=== PATIENT | female | born 1940 | race Caucasian/White ===

== ENCOUNTER 2019-10-21 09:39 | Outpatient (CLI) | payer MEDICARE, OTHER, SELFPAY ==
--- NOTE | ~2019-10-21 | US_ITS ---
EXAMINATION: US venous doppler LE EXAM DATE: 10/21/2019 10:51 INDICATION: DVT follow-up. TECHNIQUE: Multiple grayscale, color flow and Doppler images of the lower extremity deep venous syste ms bilaterally were obtained and reviewed. Comparison is made to prior examination from 07/17/2019. FINDINGS: RIGHT SIDE Common femoral: -------- Normal. Profunda femoral: ------- Normal. Femoral: Normal. Popliteal: Normal. Interval reconstitution. Posterior tibial: --------- Normal. Peroneal: Normal. Gastrocnemius: Not visualized. Soleus: Not visualized. Greater saphenous: ----- Normal. Lesser saphenous: ------ Not visualized. LEFT SIDE Common femoral: -------- Normal. Profunda femoral: ------- Normal. Femoral: Normal. Popliteal: Normal. Posterior tibial: --------- Normal. Peroneal: Normal. Gastrocnemius: Not visualized. Soleus: Not visualized. Greater saphenous: ----- Normal. Lesser saphenous: ------ Not visualized. IMPRESSION: 1. Resolution of previously seen lower extremity thrombus. Reviewed, dictated and finalized at location B.
== END 2019-10-21 09:40 | disposition home or self-care (01) ==
PROVIDERS: PCP Family Medicine; Visit Provider Internal Medicine Hematology & Oncology
DX: I82.4Y3 Acute embolism and thrombosis of unspecified deep veins of proximal lower extremity, bilateral (principal)
CPT/HCPCS: 93970

== ENCOUNTER 2019-12-03 10:41 | Outpatient (CLI) | payer MEDICARE, OTHER, SELFPAY ==
--- NOTE | ~2019-12-03 | MM_ITS ---
EXAMINATION: MM screening sylvain LT w valeriy HISTORY: Screening mammogram TECHNIQUE: Craniocaudal and mediolateral oblique 3-D tomosynthesis images were obtained and synthetic 2-D images were generated. CAD analysis was submitted and interpreted. COMPARISON: 12/01/2018 left digital screening mammogram, 11/25/2017, 10/30/2014 bilateral digital screening mammogram examinations BREAST PARENCHYMAL COMPOSITION: There are scattered areas of fibroglandular density. 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 There is no evidence of suspicious mass, calcification, or architectural distortion to suggest malign augustus of the left breast. There has been no suspicious interval change. IMPRESSION: 1. No mammographic evidence of malignancy of left breast; status post right mastectomy for breast can cer. 2. Recommend routine screening mammography in one year. BI-RADS Category 1: Negative Reviewed, dictated and finalized at location A. IMPRESSION: 1. No mammographic evidence of malignancy of left breast; status post right mas tectomy for breast cancer. 2. Recommend routine screening mammography in one year. BI-RADS Category 1: Negative
== END 2019-12-03 10:42 | disposition home or self-care (01) ==
PROVIDERS: PCP Family Medicine; Visit Provider Internal Medicine Hematology & Oncology
DX: Z12.31 Encounter for screening mammogram for malignant neoplasm of breast (principal)
CPT/HCPCS: 36415; 77063; 77067; 80053; 85025; 86300

== ENCOUNTER 2019-12-03 11:28 | Outpatient (CLI) | payer MEDICARE, OTHER, SELFPAY ==
[2019-12-03 11:54] LABS: Basophils Absolute Auto 0.1 K/mm3 (0.0-0.1); Basophils Percent Auto 0.7 % (0.2-1.2); Eosinophils Percent Auto 0.4 % (0-4.4); Hematocrit 41.1 % (37.0-47.0); Hemoglobin 13.2 g/dL (12.0-15.0); Immature Granulocyte Absolute 0.04 K/mm3 (0.00-0.031); Immature Granulocyte Percent A 0.4 % (0-0.5); Lymphocytes Absolute Auto 2.31 K/mm3 (0.9-3.2); Lymphocytes Percent Auto 23.4 % (18.3-44.2); Mean Corpuscular HGB Conc 32.1 g/dl (32-36); Mean Corpuscular Hemoglobin 30.3 pg (26-34); Mean Corpuscular Volume 94.5 fl (80-100); Mean Platelet Volume 11.2 fl (7.4-10.4); Monocytes Absolute Auto 1.2 K/mm3 (0.1-0.6); Monocytes Percent Auto 11.8 % (2.6-8.5); Neutrophils Absolute Auto 6.3 K/mm3 (1.3-6.7); Neutrophils Percent Auto 63.3 % (45.5-73.1); Platelet Count Result 239 k/mm3 (150-375); Red Blood Count 4.35 M/mm3 (4.2-5.4); Red Cell Distribution Width 13.6 % (11.5-14.5); White Blood Count 9.9 K/mm3 (4.5-10.0)
[2019-12-03 13:09] LABS: Alanine Aminotransferase 14 U/L (4-35); Albumin Level 4.3 g/dL (3.5-5.1); Alkaline Phosphatase 92 U/L (38-126); Aspartate Amino Transferase 20 U/L (14-36); Bilirubin,Total 0.9 mg/dL (0.2-1.3); Blood Urea Nitrogen 15 mg/dL (7-17); Calcium 9.4 mg/dL (8.4-10.2); Carbon Dioxide 32 mmol/L (22-30); Chloride 101 mmol/L (98-107); Estimated Glomerular Filt Rate > 60; Glucose 101 mg/dL (65-105); Potassium 3.8 mmol/L (3.4-5.0); Sodium 139 mmol/L (137-145)
[2019-12-06 03:45] LABS: CA 27.29 32 U/mL (<38)
== END 2019-12-03 11:29 | disposition home or self-care (01) ==
PROVIDERS: PCP Family Medicine; Visit Provider Internal Medicine Hematology & Oncology
DX: C50.411 Malignant neoplasm of upper-outer quadrant of right female breast (principal)
CPT/HCPCS: 36415; 80053; 85025; 86300

== ENCOUNTER 2019-12-14 08:24 | Outpatient (CLI) | payer MEDICARE, OTHER, SELFPAY ==
--- NOTE | 2019-12-14 | ECHO_ITS ---
Patient Info Name: Jhoana Sharma Age: 79 years : 1940 Gender: Female Ht: 70 in Wt: 248 lbs BSA: 2.40 m2 HR: 70 bpm BP: 179 / 83 mmHg Heart Rhythm: Sinus Rhythm Technical Quality: Good Exam Date: 12/14/2019 8:48 AM Exam Location: [facility] Patient Status: Outpatient Admit Date: 12/14/2019 Staff Ordering Physician: Jc Londono MD Wire Technician: Juice Jimenez NANCY Attending Provider: Jc Londono MD Referring Physician: Bry CERON; Exam Type: CA echo doppler color flow Study Info Indications R60.0 - Localized edema Complete two-dimensional, color flow and Doppler transthoracic echocardiogram is performed. Strain analysis performed. History/Risk Factors Lower extremity edema. Summary 1. Left ventricular chamber dimension is normal. 2. Left ventricular systolic function is normal, estimated at 65-70%. 3. The left ventricular diastolic function is normal. 4. No significant valvular disease. 5. No apparent cardiac reason for the patient's edema. Left Ventricle Left ventricular chamber dimension is normal. Left ventricular systolic function is normal, estimated at 65-70%. The left ventricular diastolic function is normal. Right Ventricle Right ventricular chamber dimension is normal. Left Atria Left atrial chamber dimension is normal. Right Atria Right atrial chamber dimension is normal. Aortic Valve The aortic valve is normal. There is mild aortic valve sclerosis. Pulmonic Valve The pulmonic valve is not well visualized. Mitral Valve The mitral valve has normal leaflets. Tricuspid Valve The tricuspid valve leaflets are normal. Pericardium/Pleural The pericardium appears normal. Aorta The aortic root size at the sinus of Valsalva is normal. Left Ventricular Outflow Tract Name Value Normal LVOT 2D LVOT Diameter 2.0 cm LVOT Doppler LVOT Peak Gradient 4 mmHg LVOT Mean Gradient 2 mmHg LVOT VTI 24 cm LVOT VTI/AV VTI Ratio 0.8 LVOT Stroke Volume 75 ml LVOT CO 4.6 l/min LVOT CI 1.9 l/min/m2 Mitral Valve Name Value Normal MV Doppler MV Decel Grant 317 cm/s2 MV PHT 89 ms MV Area (PHT) 2.5 cm2 4.0-5.0 MV Diastolic Function MV E Peak Velocity 98 cm/s MV A Peak Velocity 76 cm/s MV E/A 1.3 MV Decel Time 308 ms MV Annular TDI
== END 2019-12-14 08:25 | disposition home or self-care (01) ==
LOC: ANHCARD 08:28
PROVIDERS: PCP Family Medicine; Visit Provider Internal Medicine Hematology & Oncology
DX: M79.89 Other specified soft tissue disorders (principal); R60.0 Localized edema
CPT/HCPCS: 93306

== ENCOUNTER 2020-03-02 14:09 | Outpatient (CLI) | payer MEDICARE, OTHER, SELFPAY ==
[2020-03-02 14:28] LABS: Basophils Absolute Auto 0.1 K/mm3 (0.0-0.1); Basophils Percent Auto 0.5 % (0.2-1.2); Eosinophils Absolute Auto 0.1 K/mm3 (0-0.3); Eosinophils Percent Auto 0.9 % (0-4.4); Hemoglobin 13.4 g/dL (12.0-15.0); Immature Granulocyte Absolute 0.04 K/mm3 (0.00-0.031); Immature Granulocyte Percent A 0.4 % (0-0.5); Lymphocytes Percent Auto 31.4 % (18.3-44.2); Mean Corpuscular HGB Conc 31.9 g/dl (32-36); Mean Corpuscular Hemoglobin 29.5 pg (26-34); Mean Corpuscular Volume 92.3 fl (80-100); Mean Platelet Volume 10.9 fl (7.4-10.4); Monocytes Absolute Auto 0.9 K/mm3 (0.1-0.6); Monocytes Percent Auto 9.7 % (2.6-8.5); Neutrophils Absolute Auto 5.4 K/mm3 (1.3-6.7); Neutrophils Percent Auto 57.1 % (45.5-73.1); Platelet Count Result 287 k/mm3 (150-375); Red Blood Count 4.55 M/mm3 (4.2-5.4); Red Cell Distribution Width 14.1 % (11.5-14.5); White Blood Count 9.6 K/mm3 (4.5-10.0)
[2020-03-02 15:08] LABS: Alanine Aminotransferase 17 U/L (4-35); Albumin Level 4.2 g/dL (3.5-5.1); Alkaline Phosphatase 94 U/L (38-126); Anion Gap 10 mmol/L (8-16); Aspartate Amino Transferase 18 U/L (14-36); Bilirubin,Total 0.7 mg/dL (0.2-1.3); Blood Urea Nitrogen 17 mg/dL (7-17); Calcium 9.4 mg/dL (8.4-10.2); Carbon Dioxide 28 mmol/L (22-30); Chloride 100 mmol/L (98-107); Estimated Glomerular Filt Rate > 60; Glucose 142 mg/dL (65-105); Potassium 4.1 mmol/L (3.4-5.0); Sodium 138 mmol/L (137-145)
[2020-03-04 14:40] LABS: CA 27.29 32 U/mL (<38)
== END 2020-03-02 14:10 | disposition home or self-care (01) ==
LOC: ANHLAB 14:12
PROVIDERS: PCP Family Medicine; Visit Provider Internal Medicine Hematology & Oncology
DX: C50.411 Malignant neoplasm of upper-outer quadrant of right female breast (principal); Z17.0 Estrogen receptor positive status [ER+]
CPT/HCPCS: 36415; 80053; 85025; 86300

== ENCOUNTER 2020-05-27 14:22 | Outpatient (CLI) | payer MEDICARE, OTHER, SELFPAY ==
[2020-05-27 14:37] LABS: Hematocrit 42.4 % (37.0-47.0); Hemoglobin 13.4 g/dL (12.0-15.0); Mean Corpuscular HGB Conc 31.6 g/dl (32-36); Mean Corpuscular Hemoglobin 29.3 pg (26-34); Mean Corpuscular Volume 92.6 fl (80-100); Mean Platelet Volume 10.9 fl (7.4-10.4); Platelet Count Result 274 k/mm3 (150-375); Red Blood Count 4.58 M/mm3 (4.2-5.4); Red Cell Distribution Width 14.4 % (11.5-14.5); White Blood Count 8.7 K/mm3 (4.5-10.0)
[2020-05-27 16:34] LABS: Alanine Aminotransferase 16 U/L (4-35); Albumin Level 4.1 g/dL (3.5-5.1); Alkaline Phosphatase 95 U/L (38-126); Anion Gap 8 mmol/L (8-16); Aspartate Amino Transferase 21 U/L (14-36); Bilirubin,Total 0.8 mg/dL (0.2-1.3); Blood Urea Nitrogen 17 mg/dL (7-17); Calcium 9.7 mg/dL (8.4-10.2); Carbon Dioxide 33 mmol/L (22-30); Chloride 99 mmol/L (98-107); Estimated Glomerular Filt Rate > 60; Glucose 108 mg/dL (65-105); Potassium 4.1 mmol/L (3.4-5.0); Sodium 140 mmol/L (137-145)
[2020-06-01 13:08] LABS: CA 15-3 25 U/mL (<32)
== END 2020-05-27 14:23 | disposition home or self-care (01) ==
LOC: ANHLAB 14:24
PROVIDERS: PCP Family Medicine; Visit Provider Internal Medicine Hematology & Oncology
DX: C50.411 Malignant neoplasm of upper-outer quadrant of right female breast (principal); Z17.0 Estrogen receptor positive status [ER+]
CPT/HCPCS: 36415; 80053; 85027; 86300

== ENCOUNTER 2020-06-10 10:13 | Emergency (ER) | payer MEDICARE, OTHER, SELFPAY ==
[2020-06-10 10:25] VITALS: BP 174/70; PULSE 70; RESP 16; TEMP 36.8; O2SAT 98
--- NOTE | 2020-06-10 11:03 | ED.GENADULT ---
HPI - General Adult General Chief complaint: Unspecified Stated complaint: not feeling well Time Seen by Provider: 06/10/20 11:04 Source: patient, family and RN notes reviewed Mode of arrival: ambulatory Limitations: no limitations History of Present Illness HPI narrative: 79-year-old female who presents to [facility] care with complaints not feeling well. Patient states that she went to her doctor on Saturday and was diagnosed with continued urinary tract infection and was prescribed Bactrim DS of which she took one dose but quit stating that it made her nauseated. Patient states that she did have a 101F fever yesterday but presents with no fever today. Patient states that she continues to have some burning with urination but denies any supra pubic or any CVA tenderness. Patient states that she has some generalized discomfort and just doesn't feel well. MD complaint: urinary tract infection Onset (ago): day(s) (5) Radiation: other (states generalized discomfort) Severity: mild Severity scale (1-10): 4 Quality: burning Pain Consistency: intermittent Relieving factors: none Associated symptoms: fever/chills (yesterday) and other (burning with urination) Treatments prior to arrival: other (only took one dose of Bactrim) Related Data Home Medications Medication Instructions Recorded Confirmed calcium carbonate-vitamin D3 1 tablet PO DAILY 05/05/19 06/10/20 [Calcium 500 + D] venlafaxine 75 mg tablet 75 mg PO DAILY 03/24/20 06/10/20 levothyroxine 06/10/20 nitrofurantoin monohyd/m-cryst 06/11/20 ondansetron HCl 06/11/20 Allergies Allergy/AdvReac Type Severity Reaction Status Date / Time atorvastatin Allergy Unknown unknown Verified 06/11/20 01:35 celecoxib Allergy Unknown Unknown Verified 06/11/20 01:35 cephalexin Allergy Unknown Unknown Verified 06/11/20 01:35 codeine Allergy Unknown Unknown Verified 06/11/20 01:35 diclofenac Allergy Unknown Unknown Verified 06/11/20 01:35 ezetimibe Allergy Unknown Unknown Verified 06/11/20 01:35 gabapentin Allergy Unknown Unknown Verified 06/11/20 01:35 hydrocodone Allergy Unknown Unknown Verified 06/11/20 01:35 lovastatin Allergy Unknown Unknown Verified 06/11/20 01:35 ondansetron Allergy Unknown Unknown Verified 11/28/20 01:35 Penicillins Allergy Unknown Unknown Verified 06/11/20 01:35 piroxicam Allergy Unknown WEAK, BLACKMAN Verified 06/11/20 01:35 prednisone Allergy Unknown Unknown Verified 06/11/20 01:35 pregabalin Allergy Unknown Unknown Verified 06/11/20 01:35 ranitidine Allergy Unknown Unknown Verified 06/11/20 01:35 simvastatin Allergy Unknown Unknown Verified 06/11/20 01:35 duloxetine AdvReac Unknown DOESN'T Verified 06/11/20 01:35 FEEL RIGHT duloxetine Allergy Unknown DOESN'T Uncoded 06/08/20 09:02 FEEL RIGHT Penicillins Allergy Unknown Increased Uncoded 06/08/20 09:02 Heart Rate CEPHALEXIN MONOHYDRATE AdvReac Unknown WEAK, BLACKMAN Uncoded 06/08/20 09:02 Review of Systems Review of Systems: Narrative: CONSTITUTIONAL: reports fever, chills, or sweats. EYES: Denies visual changes, redness, or discharge. ENT: Denies rhinorrhea, congestion, sore throat, or otalgia. CARDIOVASCULAR: Denies chest pain, palpitations, or edema. RESPIRATORY: Denies cough or dyspnea. GASTROINTESTINAL: Denies abdominal pain,reported nausea with medication,no vomiting, or diarrhea. GENITOURINARY: Positive dysuria or hematuria. SKIN: Denies rash or itching. MUSCULOSKELETAL: Denies back pain, joint pain, or myalgia. NEUROLOGIC: Denies headache, numbness, or weakness. PSYCHIATRIC:Positive history of anxiety or depression. All systems reviewed & are unremarkable except as noted in HPI and below PMFSH Past Medical History Medical History (Updated 06/12/20 @ 11:15 by Kami Peters NP) Breast cancer, right Frequent UTI Small bowel obstruction Spinal stenosis of lumbar region Thrombophlebitis leg superficial Surgical History Surgical History
== END 2020-06-10 11:43 | disposition home or self-care (01) ==
PROVIDERS: Emergency Provider Registered Nurse; PCP Family Medicine
DX: N39.0 Urinary tract infection, site not specified (principal); M48.061 Spinal stenosis, lumbar region without neurogenic claudication; Z86.72 Personal history of thrombophlebitis; Z85.3 Personal history of malignant neoplasm of breast; Z90.11 Acquired absence of right breast and nipple; Z96.653 Presence of artificial knee joint, bilateral; E89.0 Postprocedural hypothyroidism
CPT/HCPCS: 81003; 87086; 99213; G0463

== ENCOUNTER 2020-06-11 01:22 | Emergency (ER) | payer MEDICARE, OTHER, SELFPAY ==
--- NOTE | ~2020-06-11 | XR_ITS ---
XR chest 1V portable DATE: 06/11/2020 02:37 INDICATION: Cough, dizziness, headache TECHNIQUE: Portable AP chest on 06/03/2020 at 0237 hours COMPARISON: 03/21/2018 portable AP chest FINDINGS: Left Port-A-Cath catheter is been removed since 03/21/2018. Cardiomegaly. There is mild pulmonary vascular congestion. No pulmonary consolidation, pleural effusion or pneumothorax. Surgical clips overlie the right axillary area consistent with right axillary node dissection. The ri ght breast shadow is absent or diminished compared to into the left. Degenerative spurring of the thoracic spine. IMPRESSION: Cardiomegaly and mild pulmonary vascular congestion Reviewed, dictated and finalized at location A. UM TOUR GUIDE
[2020-06-11 01:28] VITALS: BP 164/64; PULSE 84; RESP 18; TEMP 37.3; O2SAT 95
[2020-06-11 02:00] VITALS: TEMP 38.1
--- NOTE | 2020-06-11 02:13 | ECG_ITS ---
Measurements Intervals [place] Rate: 86 P: 52 TX: 156 QRS: -11 QRSD: 81 T: 26 QT: 349 QTc: 418 Interpretive Statements SINUS RHYTHM ATRIAL PREMATURE COMPLEXES DELAYED PRECORDIAL R/S TRANSITION BASELINE ARTIFACT- I, II, III, AVR, AVL, V5 BORDERLINE ECG Electronically Signed On 06-11-2020 7:51:32 PROGRAM PARAPROFESSIONAL by Jony Love D.O.
[2020-06-11] MEDS: PROCHLORPERAZINE EDISYLATE 10 MG/2 ML VIAL IV PUSH (02:48)
[2020-06-11] MEDS: SODIUM CHLORIDE 0.9% IV 1,000 ML 999 ML IV CONT (02:49)
[2020-06-11 02:55] LABS: Basophils Percent Auto 0.4 % (0.2-1.2); Eosinophils Percent Auto 0.4 % (0-4.4); Hemoglobin 12.7 g/dL (12.0-15.0); Immature Granulocyte Absolute 0.05 K/mm3 (0.00-0.031); Immature Granulocyte Percent A 0.4 % (0-0.5); Mean Corpuscular HGB Conc 33.4 g/dl (32-36); Mean Corpuscular Hemoglobin 30.4 pg (26-34); Mean Corpuscular Volume 90.9 fl (80-100); Mean Platelet Volume 11.4 fl (7.4-10.4); Monocytes Absolute Auto 1.2 K/mm3 (0.1-0.6); Monocytes Percent Auto 10.4 % (2.6-8.5); Neutrophils Absolute Auto 9.3 K/mm3 (1.3-6.7); Neutrophils Percent Auto 81.4 % (45.5-73.1); Platelet Count Result 197 k/mm3 (150-375); Red Blood Count 4.18 M/mm3 (4.2-5.4); Red Cell Distribution Width 14.6 % (11.5-14.5); White Blood Count 11.4 K/mm3 (4.5-10.0)
[2020-06-11 03:02] LABS: Add Urine Microscopic? YES; Appearance Urine Clear (Clear); Bacteria Urine Trace /hpf; Bilirubin Urine Negative (Negative); Blood Urine Negative (Negative); Color Urine Yellow (Yellow); Glucose Urine UA Negative (Negative); Ketones Urine Trace mg/dL (Negative); Leukocyte Esterase Ur 3+ LEU/UL (Negative); Mucus Urine Rare /lpf; Nitrate Urine Negative (Negative); Protein Urine 1+ mg/dL (Negative); Specific Grav Ur 1.017 (1.001-1.035); Squamous Epithelial Cell Urine Moderate /hpf (Few); Urobilinogen Urine Negative mg/dL (<2.0); WBC Urine 31-50 /hpf
[2020-06-11 03:06] LABS: INR 1.3; Prothrombin Time 16.6 Seconds (11.1-14.7)
[2020-06-11 03:07] LABS: Lactic Acid Reflex 1.3 mmol/L (0.7-2.1); Partial Thromboplastin Time 31.7 SECONDS (22.3-36.8)
[2020-06-11 03:10] LABS: Alanine Aminotransferase 33 U/L (4-35); Albumin Level 3.8 g/dL (3.5-5.1); Alkaline Phosphatase 93 U/L (38-126); Anion Gap 7 mmol/L (8-16); Aspartate Amino Transferase 37 U/L (14-36); Blood Urea Nitrogen 14 mg/dL (7-17); Carbon Dioxide 31 mmol/L (22-30); Chloride 97 mmol/L (98-107); Estimated CRCL calculation 63 ml/min; Estimated Glomerular Filt Rate > 60; Glucose 136 mg/dL (65-105); Lipase 43 U/L (23-300); Potassium 3.8 mmol/L (3.4-5.0); Sodium 135 mmol/L (137-145)
[2020-06-11 03:19] VITALS: TEMP 37.9
[2020-06-11 03:55] VITALS: BP 142/58; PULSE 77; RESP 19; TEMP 37.9; O2SAT 93
--- NOTE | 2020-06-11 04:22 | ED.FEVER ---
HPI - Fever General Chief Complaint: Fever Stated Complaint: chills Time Seen by Provider: 06/11/20 02:04 History of Present Illness HPI Narrative: Patient is a 79-year-old female who presents to emergency department with chief complaint of fever. The patient was recently seen at urgent care and was having some nausea and was found to have a UTI. The patient was started on Bactrim patient states that she has become so nauseated that she is unable to take the Bactrim and has still been running a fever patient reports symptoms are not improved by anything nor they worsened by anything. Related Data Home Medications Medication Instructions Recorded Confirmed calcium carbonate-vitamin D3 1 tablet PO DAILY 05/05/19 06/10/20 [Calcium 500 + D] venlafaxine 75 mg tablet 75 mg PO DAILY 03/24/20 06/10/20 levothyroxine 06/10/20 nitrofurantoin monohyd/m-cryst 06/11/20 ondansetron HCl 06/11/20 Allergies Allergy/AdvReac Type Severity Reaction Status Date / Time atorvastatin Allergy Unknown unknown Verified 06/11/20 01:35 celecoxib Allergy Unknown Unknown Verified 06/11/20 01:35 cephalexin Allergy Unknown Unknown Verified 06/11/20 01:35 codeine Allergy Unknown Unknown Verified 06/11/20 01:35 diclofenac Allergy Unknown Unknown Verified 06/11/20 01:35 ezetimibe Allergy Unknown Unknown Verified 06/11/20 01:35 gabapentin Allergy Unknown Unknown Verified 06/11/20 01:35 hydrocodone Allergy Unknown Unknown Verified 06/11/20 01:35 lovastatin Allergy Unknown Unknown Verified 06/11/20 01:35 ondansetron Allergy Unknown Unknown Verified 06/11/20 01:35 Penicillins Allergy Unknown Unknown Verified 06/11/20 01:35 piroxicam Allergy Unknown WEAK, BLACKMAN Verified 06/11/20 01:35 prednisone Allergy Unknown Unknown Verified 06/11/20 01:35 pregabalin Allergy Unknown Unknown Verified 06/11/20 01:35 ranitidine Allergy Unknown Unknown Verified 06/11/20 01:35 simvastatin Allergy Unknown Unknown Verified 06/11/20 01:35 duloxetine AdvReac Unknown DOESN'T Verified 06/11/20 01:35 FEEL RIGHT duloxetine Allergy Unknown DOESN'T Uncoded 06/08/20 09:02 FEEL RIGHT Penicillins Allergy Unknown Increased Uncoded 06/08/20 09:02 Heart Rate CEPHALEXIN MONOHYDRATE AdvReac Unknown WEAK, BLACKMAN Uncoded 06/08/20 09:02 Review of Systems Review of Systems: Narrative: CONSTITUTIONAL: Denies fever, chills, or sweats. EYES: Denies visual changes, redness, or discharge. ENT: Denies rhinorrhea, congestion, sore throat, or otalgia. CARDIOVASCULAR: Denies chest pain, palpitations, or edema. RESPIRATORY: Denies cough or dyspnea. GASTROINTESTINAL: Denies abdominal pain, nausea, vomiting, or diarrhea. GENITOURINARY: Denies dysuria or hematuria. SKIN: Denies rash or itching. MUSCULOSKELETAL: Denies back pain, joint pain, or myalgia. NEUROLOGIC: Denies headache, numbness, or weakness. PSYCHIATRIC: Denies anxiety or depression. A 10 system review of systems was completed on the patient and is negative except for what is stated in the HPI. Nursing and ancillary documentation was reviewed. [facility] Past Medical History Medical History Breast cancer, right Small bowel obstruction Spinal stenosis of lumbar region Thrombophlebitis leg superficial Surgical History Surgical History H/O mastectomy H/O thyroidectomy History of bilateral knee replacement Family History Family History Father Cerebrovascular accident Mother Family history of malignant neoplasm of stomach Sibling Family history of lymphoma Family history of coronary artery disease Other Carcinoma of colon Diabetes mellitus Family history of arthritis Family history of cardiovascular disease Family history of malignant neoplasm Social History Social History Smok
[2020-06-11 04:58] VITALS: BP 138/67; PULSE 76; RESP 16; TEMP 37.6; O2SAT 99
== END 2020-06-11 05:00 | disposition home or self-care (01) ==
PROVIDERS: Emergency Provider Emergency Medicine; PCP Family Medicine
DX: N39.0 Urinary tract infection, site not specified (principal); R11.2 Nausea with vomiting, unspecified; Z85.3 Personal history of malignant neoplasm of breast; Z90.11 Acquired absence of right breast and nipple; E89.0 Postprocedural hypothyroidism
CPT/HCPCS: 36415; 71045; 80053; 81001; 83605; 83690; 85025; 85610; 85730; 86140; 87040; 93005; 96361; 96374; 96375; 99284; A9270; J0131; J0780; J7030

== ENCOUNTER 2020-07-20 13:02 | Outpatient (CLI) | payer MEDICARE, OTHER, SELFPAY ==
--- NOTE | ~2020-07-20 | CT_ITS ---
EXAMINATION: CT abdomen pelvis wo/w con DATE: 07/20/2020 14:02 INDICATION: Microhematuria TECHNIQUE: Computed tomography (CT) of the abdomen and pelvis was performed without and subsequently with 130 cc Omnipaque 350 intravenous contrast. Automated exposure control and iterative reconstructi on technique were employed. Exam dose: 2552.03 mGy-cm total exam DLP. COMPARISON: 03/18/2018./CT scan FINDINGS: Status post right mastectomy. Minimal patchy groundglass infiltrate or atelectasis at the lower lung zones. There is cardiomegaly. No pericardial effusion. No pleural effusion. Mild prominence of the intrahepatic and extrahepatic bile ducts, likely secondary to cholecystectomy. No hepatic, splenic, pancreatic, right adrenal space-occupying mass lesion. Probable approximately 11 mm left adrenal adenoma. There are parapelvic left renal cysts, the largest measuring up to approximately 1.9 x 3.3 cm. No jhoan picious space-occupying mass lesion of either kidney is detected. The urinary bladder appears unremar kable. Normal caliber of the abdominal aorta. No intraperitoneal or retroperitoneal mass lesion or lymphade nopathy or ascites. No intraperitoneal free air. There are numerous diverticula of the left colon, especially the sigmoid colon. No evidence of diver ticulitis. No bowel obstruction or intraperitoneal free air. Status post hysterectomy. The urinary bladder is unremarkable. Very small fat containing umbilical hernia. Scoliosis and degenerative changes of the thoracolumbar spine, including diffuse idiopathic skeletal hyperostosis of the thoracic spine, grade 1 anterolisthesis at L4-5 due to degenerative change at the apophyseal joints, moderately severe degenerative disease at L5-S1. IMPRESSION: Status post right mastectomy Cardiomegaly Status post cholecystectomy Left renal parapelvic cysts Diverticulosis of the colon Status post hysterectomy Reviewed, dictated and finalized at Location A. Reviewed, dictated and finalized at location B. ROL CLERK [employer]
--- NOTE | ~2020-07-20 | XR_ITS ---
EXAMINATION: XR abdomen/kub 1V EXAM DATE: 07/20/2020 13:26 INDICATION: Microhematuria. TECHNIQUE: Frontal projection(s) of the abdomen for interpretation. Comparison is made to prior exami nation from 03/06/2018. FINDINGS: Mild lumbar levoscoliosis. Moderate amount of colonic stool. No small bowel dilation. Ther e is no organomegaly. Calcifications in the pelvis are believed to be phleboliths. No suspicious so ft tissue calcifications identified. IMPRESSION: Unremarkable XR abdomen/kub 1V exam. Reviewed, dictated and finalized at location A. GATION EXAMINER
[2020-07-20 13:37] LABS: Estimated Glomerular Filt Rate > 60
== END 2020-07-20 13:03 | disposition home or self-care (01) ==
PROVIDERS: PCP Family Medicine; Visit Provider Nurse Practitioner Adult Health
DX: R31.29 Other microscopic hematuria (principal); Z90.49 Acquired absence of other specified parts of digestive tract; K57.30 Diverticulosis of large intestine without perforation or abscess without bleeding
CPT/HCPCS: 74018; 74178; Q9967

== ENCOUNTER 2020-09-13 14:17 | Outpatient (CLI) | payer MEDICARE, OTHER, SELFPAY ==
[2020-09-13 14:34] LABS: Basophils Absolute Auto 0.1 K/mm3 (0.0-0.1); Basophils Percent Auto 0.5 % (0.2-1.2); Eosinophils Absolute Auto 0.1 K/mm3 (0-0.3); Eosinophils Percent Auto 0.9 % (0-4.4); Hematocrit 41.3 % (37.0-47.0); Hemoglobin 13.4 g/dL (12.0-15.0); Immature Granulocyte Absolute 0.02 K/mm3 (0.00-0.031); Immature Granulocyte Percent A 0.2 % (0-0.5); Lymphocytes Absolute Auto 3.57 K/mm3 (0.9-3.2); Mean Corpuscular HGB Conc 32.4 g/dl (32-36); Mean Corpuscular Hemoglobin 30.2 pg (26-34); Mean Corpuscular Volume 93.2 fl (80-100); Monocytes Percent Auto 9.9 % (2.6-8.5); Neutrophils Absolute Auto 5.5 K/mm3 (1.3-6.7); Neutrophils Percent Auto 53.5 % (45.5-73.1); Platelet Count Result 277 k/mm3 (150-375); Red Blood Count 4.43 M/mm3 (4.2-5.4); Red Cell Distribution Width 15.1 % (11.5-14.5); White Blood Count 10.2 K/mm3 (4.5-10.0)
[2020-09-13 16:43] LABS: Alanine Aminotransferase 18 U/L (4-35); Albumin Level 3.9 g/dL (3.5-5.1); Alkaline Phosphatase 81 U/L (38-126); Anion Gap 6 mmol/L (8-16); Aspartate Amino Transferase 19 U/L (14-36); Bilirubin,Total 0.5 mg/dL (0.2-1.3); Blood Urea Nitrogen 17 mg/dL (7-17); Calcium 9.4 mg/dL (8.4-10.2); Carbon Dioxide 33 mmol/L (22-30); Chloride 100 mmol/L (98-107); Estimated Glomerular Filt Rate > 60; Glucose 120 mg/dL (65-105); Sodium 139 mmol/L (137-145)
[2020-09-16 07:58] LABS: CA 15-3 23 U/mL (<32)
== END 2020-09-13 14:18 | disposition home or self-care (01) ==
LOC: ANHLAB 14:19
PROVIDERS: PCP Family Medicine; Visit Provider Internal Medicine Hematology & Oncology
DX: C50.411 Malignant neoplasm of upper-outer quadrant of right female breast (principal); Z17.0 Estrogen receptor positive status [ER+]
CPT/HCPCS: 36415; 80053; 85025; 86300

== ENCOUNTER 2020-11-28 13:34 | Outpatient (CLI) | payer MEDICARE, OTHER, SELFPAY | END 2020-11-28 13:35 | disposition home or self-care (01) | LOC: ANHAUDIO 13:37 | PROVIDERS: PCP Family Medicine; Visit Provider Family Medicine | DX: H90.3 Sensorineural hearing loss, bilateral (principal); H93.19 Tinnitus, unspecified ear | CPT/HCPCS: 92557; 92567 ==

== ENCOUNTER 2020-12-07 13:43 | Outpatient (CLI) | payer MEDICARE, OTHER, SELFPAY ==
--- NOTE | ~2020-12-07 | MM_ITS ---
EXAMINATION: MM screening sylvain LT w valeriy HISTORY: Screening mammogram TECHNIQUE: Craniocaudal and mediolateral oblique 3-D tomosynthesis images were obtained and synthetic 2-D images were generated. CAD analysis was submitted and interpreted. COMPARISON: 12/03/2019, 12/01/2018, 11/25/2017 bilateral digital screening mammogram examinations BREAST PARENCHYMAL COMPOSITION: There are scattered areas of fibroglandular density. FINDINGS: Status post right mastectomy for breast cancer. A new ill-defined approximately 6 mm opacity is noted in the posterior inner left breast on craniocau johnny view. Diagnostic left mammogram and left breast ultrasound examination are recommended. IMPRESSION: 1. New ill-defined 6 mm opacity in posterior inner left breast on screening CC view. 2. Diagnostic left mammogram and left breast ultrasound examination are recommended. BI-RADS Category 0: Incomplete: Needs additional imaging evaluation. Reviewed, dictated and finalized at location A. IMPRESSION: 1. New ill-defined 6 mm opacity in posterior inner left breast on screening CC view. 2. Diagnostic left mammogram and left breast ultrasound examination are recomme nded. BI-RADS Category 0: Incomplete: Needs additional imaging evaluation.
== END 2020-12-07 13:44 | disposition home or self-care (01) ==
LOC: ANHIMG 13:47
PROVIDERS: PCP Family Medicine; Visit Provider Internal Medicine Hematology & Oncology
DX: Z12.31 Encounter for screening mammogram for malignant neoplasm of breast (principal); R92.8 Other abnormal and inconclusive findings on diagnostic imaging of breast
CPT/HCPCS: 77063; 77067

== ENCOUNTER 2020-12-14 14:33 | Outpatient (CLI) | payer MEDICARE, OTHER, SELFPAY ==
[2020-12-14 14:55] LABS: Basophils Absolute Auto 0.1 K/mm3 (0.0-0.1); Basophils Percent Auto 0.6 % (0.2-1.2); Eosinophils Absolute Auto 0.1 K/mm3 (0-0.3); Eosinophils Percent Auto 0.5 % (0-4.4); Hematocrit 41.1 % (37.0-47.0); Hemoglobin 13.4 g/dL (12.0-15.0); Immature Granulocyte Absolute 0.03 K/mm3 (0.00-0.031); Immature Granulocyte Percent A 0.3 % (0-0.5); Lymphocytes Absolute Auto 3.01 K/mm3 (0.9-3.2); Lymphocytes Percent Auto 27.7 % (18.3-44.2); Mean Corpuscular HGB Conc 32.6 g/dl (32-36); Mean Corpuscular Hemoglobin 30.5 pg (26-34); Mean Corpuscular Volume 93.6 fl (80-100); Mean Platelet Volume 10.9 fl (7.4-10.4); Monocytes Percent Auto 9.1 % (2.6-8.5); Neutrophils Absolute Auto 6.7 K/mm3 (1.3-6.7); Neutrophils Percent Auto 61.8 % (45.5-73.1); Platelet Count Result 257 k/mm3 (150-375); Red Blood Count 4.39 M/mm3 (4.2-5.4); Red Cell Distribution Width 13.4 % (11.5-14.5); White Blood Count 10.9 K/mm3 (4.5-10.0)
[2020-12-14 17:23] LABS: Alanine Aminotransferase 12 U/L (4-35); Albumin Level 4.1 g/dL (3.5-5.1); Alkaline Phosphatase 79 U/L (38-126); Anion Gap 10 mmol/L (8-16); Aspartate Amino Transferase 19 U/L (14-36); Bilirubin,Total 0.4 mg/dL (0.2-1.3); Blood Urea Nitrogen 22 mg/dL (7-17); Carbon Dioxide 28 mmol/L (22-30); Chloride 102 mmol/L (98-107); Estimated Glomerular Filt Rate > 60; Glucose 121 mg/dL (65-105); Potassium 4.3 mmol/L (3.4-5.0); Sodium 140 mmol/L (137-145)
[2020-12-18 08:46] LABS: CA 15-3 24 U/mL (<32)
== END 2020-12-14 14:34 | disposition home or self-care (01) ==
LOC: ANHLAB 14:41
PROVIDERS: PCP Family Medicine; Visit Provider Internal Medicine Hematology & Oncology
DX: C50.411 Malignant neoplasm of upper-outer quadrant of right female breast (principal); Z17.0 Estrogen receptor positive status [ER+]
CPT/HCPCS: 36415; 80053; 85025; 86300

== ENCOUNTER 2021-01-11 13:12 | Outpatient (CLI) | payer MEDICARE, OTHER, SELFPAY ==
--- NOTE | ~2021-01-11 | MMUS_ITS ---
EXAMINATION: MM diagnostic mammo unilat LT, US breast LT limited HISTORY: Follow-up left breast asymmetry TECHNIQUE: Additional 3-D tomosynthesis images of the left breast were performed and synthetic 2-D im ages were generated. CAD analysis was submitted and interpreted. High resolution Limited left breast ultrasound was performed. COMPARISON: Comparison to multiple prior studies sequentially, with oldest reviewed study dated 11/25. BREAST PARENCHYMAL COMPOSITION: Breast composed of scattered areas of fibroglandular density. FINDINGS: MAMMOGRAPHIC FINDINGS: There are no suspicious masses, calcifications or architectural distortion ULTRASOUND: Limited left breast ultrasound: Normal heterogeneous echotexture without focal solid or cystic mass. IMPRESSION: 1. No evidence for malignancy in the left breast. 2. Routine yearly screening mammogram and regular clinical breast examination are recommended. BI-RADS Category 1: Negative Reviewed, dictated and finalized at location A. IMPRESSION: 1. No evidence for malignancy in the left breast. 2. Routine yearly screening mammogram and regular clinical breast examination a re recommended. BI-RADS Category 1: Negative
== END 2021-01-11 13:13 | disposition home or self-care (01) ==
PROVIDERS: PCP Family Medicine; Visit Provider Internal Medicine Hematology & Oncology
DX: R92.8 Other abnormal and inconclusive findings on diagnostic imaging of breast (principal)
CPT/HCPCS: 76642; 77065

== ENCOUNTER 2021-03-15 14:27 | Outpatient (CLI) | payer MEDICARE, OTHER, SELFPAY ==
[2021-03-15 14:49] LABS: Basophils Absolute Auto 0.1 K/mm3 (0.0-0.1); Basophils Percent Auto 0.7 % (0.2-1.2); Eosinophils Absolute Auto 0.1 K/mm3 (0-0.3); Eosinophils Percent Auto 0.6 % (0-4.4); Hematocrit 39.1 % (37.0-47.0); Hemoglobin 12.7 g/dL (12.0-15.0); Immature Granulocyte Absolute 0.03 K/mm3 (0.00-0.031); Immature Granulocyte Percent A 0.3 % (0-0.5); Lymphocytes Absolute Auto 2.72 K/mm3 (0.9-3.2); Mean Corpuscular HGB Conc 32.5 g/dl (32-36); Mean Corpuscular Hemoglobin 30.6 pg (26-34); Mean Corpuscular Volume 94.2 fl (80-100); Monocytes Absolute Auto 0.7 K/mm3 (0.1-0.6); Monocytes Percent Auto 8.4 % (2.6-8.5); Neutrophils Absolute Auto 5.2 K/mm3 (1.3-6.7); Platelet Count Result 242 k/mm3 (150-375); Red Blood Count 4.15 M/mm3 (4.2-5.4); Red Cell Distribution Width 13.5 % (11.5-14.5); White Blood Count 8.8 K/mm3 (4.5-10.0)
[2021-03-15 16:48] LABS: Alanine Aminotransferase 14 U/L (4-35); Albumin Level 3.8 g/dL (3.5-5.1); Alkaline Phosphatase 76 U/L (38-126); Anion Gap 6 mmol/L (8-16); Aspartate Amino Transferase 17 U/L (14-36); Bilirubin,Total 0.5 mg/dL (0.2-1.3); Blood Urea Nitrogen 17 mg/dL (7-17); Calcium 9.4 mg/dL (8.4-10.2); Carbon Dioxide 30 mmol/L (22-30); Chloride 103 mmol/L (98-107); Estimated Glomerular Filt Rate > 60; Glucose 154 mg/dL (65-110); Potassium 3.8 mmol/L (3.4-5.0); Sodium 139 mmol/L (137-145)
[2021-03-18 08:10] LABS: CA 15-3 20 U/mL (<32)
== END 2021-03-15 14:28 | disposition home or self-care (01) ==
LOC: ANHLAB 14:31
PROVIDERS: PCP Family Medicine; Visit Provider Internal Medicine Hematology & Oncology
DX: C50.411 Malignant neoplasm of upper-outer quadrant of right female breast (principal); Z17.0 Estrogen receptor positive status [ER+]
CPT/HCPCS: 36415; 80053; 85025; 86300

== ENCOUNTER 2021-05-17 14:39 | Outpatient (CLI) | payer MEDICARE, OTHER, SELFPAY ==
--- NOTE | ~2021-05-17 | DEXA_ITS ---
Bone Density Report Name: Jhoana Sharma Age: 80 Sex: Female Ethnicity: White Date of : 1940 Indication: postmenopausal; height loss; prior fracture; cancer; hysterectomy; Referring Provider: Jake Lake Study: Bone densitometry was performed. Exam Date: May 17, 2021 Accession number: [id number] Bone Density: Region BMD T-score Z-score Classification AP Spine (L1, L2) 1.212 2.1 4.7 Normal Femoral Neck (Left) 0.837 -0.1 2.3 Normal Total Hip (Left) 1.100 1.3 3.5 Normal Total Hip Bilateral Avg 1.111 1.4 3.6 Normal Femoral Neck (Right) 0.943 0.9 3.3 Normal Total Hip (Right) 1.121 1.5 3.7 Normal World Health Organization criteria for BMD impression classify patients as: Normal (T-score at or above -1.0), Osteopenia (T-score between -1.0 and -2.5), or Osteoporosis (T-score at or below -2.5). 10-year Fracture Risk: FRAX not reported because: All T-scores for Spine Total, Hip Total, Femoral Neck at or above -1.0 Clinical Information Provided by Patient: Has had a low trauma fracture Has used the following medications: Vitamin D, Calcium Has the following medical conditions: Cancer, Hysterectomy Patient maximum height was 72 Menopause Age: 43 No regular weight bearing exercise Onset of menses at age 11 Number of children 3 Impression: The patient has normal bone mass. The patient has risk factors, including: previous fracture. Discussion: LOW RISK OF FRACTURE; BONE DENSITY IS WELL ABOVE THE MINIMUM DESIRABLE LEVEL AND ABOVE AVERAGE FOR AGE AND SEX AT ALL SKELETAL SITES TESTED. This person's bone density is above expected limits for age and sex. This is rarely clinically significant, but should be pursued if there are significant musculoskeletal complaints. The patient should follow a healthful lifestyle (good nutrition with adequate calcium and vitamin D, and appropriate weight-bearing exercise). Follow-Up: Consider repeating this study in 5 years or sooner if there is some new clinical indication. Reported by: MELI on 05/17/2021 2:58:00 PM. Reviewed, dictated and finalized at location A. JEFFERY
== END 2021-05-17 14:40 | disposition home or self-care (01) ==
LOC: ANHIMG 14:40
PROVIDERS: PCP Family Medicine; Visit Provider Family Medicine
DX: Z78.0 Asymptomatic menopausal state (principal)
CPT/HCPCS: 77080

== ENCOUNTER 2021-07-19 14:00 | Outpatient (RCR) | payer MEDICARE, OTHER, SELFPAY ==
--- NOTE | 2021-06-21 16:06 | PTOPEVAL ---
PHYSICAL THERAPY EVALUATION AND PLAN OF CARE 06-21-21 Thank you for referring Jhoana Sharma to [facility] for the diagnosis of B LE stiffness. Jhoana is scheduled to be seen for therapy? 2 x/week for 4 weeks. Her treatment plan includes gait, balance and LE strengthening. Please review, sign, date and return this plan of care CHYNA. I agree with and certify that the following plan of care is medically necessary. Referring Physician Date Attending Provider: Neil Jurado MD *PT Outpatient Evaluation Document 06/21/21 14:55 BI (Rec: 06/21/21 16:06 BI [id number]) Neurological History Hx Neurological Disorders No Significant History Cardiovascular History Hx Mitral Valve Prolapse Yes Hx Other Cardiac Disorders Yes: benign extra heart beats from chemotherapy-saw behavior analyst Respiratory History Hx Respiratory Disorders No Significant History Gastrointestinal History Hx Appendectomy Yes Hx Bowel Surgery Yes: bowel resection Hx Cholecystectomy Yes Hx Irritable Bowel Yes Hx Obstructive Bowel Yes Musculoskeletal History Hx Arthritis Yes: L hip pain/spasms Hx Back Pain Yes: spinal stenosis Hx Fractures Yes: L ankle with ORIF Hx Joint Replacement Yes: TKE R in 2018 and L in 2017 Hx Other Musculoskeletal Disorders Yes: swelling in legs due to tamoxifin;DVT R LE-take blood thinner Hematological History Hx Hematological Disorders No Significant History Endocrine History Hx Thyroidectomy Yes: hx of thyroid cancer- thyroid removed HEENT History Hx Other HEENT Disorders Yes: B hearing aides Other History Hx Cancer Yes: R mastectomy Hx Chemotherapy Yes: taking tamoxifen for cancer Hx Radiation Therapy Yes Hx Other Medical Conditions Yes: have had covid vaccine and booster Evaluation Information Problem Diagnosis B knee stiffness Onset April 2021 Subjective Information no injury or trauma to legs, Query Text:As Reported By Patient/ more stiffness in legs, Family reports she thinks it is due to taking tamoxifen; Diagnostic Tests X-Rays For This Problem Yes: B knee WNL per pt Prior Level of Function Activity Level (Last 3 Months) Occupation retired Home Setting Home Type House,Multiple Levels Environmental Barriers Stairs, Greater than 4 Living Situation With Spouse Mobili
--- NOTE | 2021-07-19 14:54 | PTOPEVAL ---
PHYSICAL THERAPY DISCHARGE 07-19-21 Refer to the clinical summary below for her status today, compared to the initial evaluation. The goals were partially achieved. Discharge PT. Thank you for referring Jhoana Sharma to [facility].? Please review, sign, date and return this Discharge CHYNA. I agree with and certify that the following plan of care is medically necessary. Referring Physician Date Attending Provider: Neil Jurado MD Assessment Status Discharge Subjective Information Jhoana reports: balance is Query Text:As Reported By Patient/ better, feels therapy has Family helped, doing exercises at home; no falls; have been going out to [employer] and store- -no problems with it; Pain Assessment Timing of Pain Assessment Timing of Pain Assessment Assessment Pain Scale Pain Scale Used Numeric (1 - 10) Self Report Pain Assessment Bilateral Knee(s) Reported Pain Level 4 Pain Description Numbness,Tingling Pain Frequency Chronic,Continuous Other Pain Description both lower legs and feet Pain Score Pain Score 4: Self Report Interventions Used Interventions Used By Clinicians Education Lower Extremity Range of Motion General Lower Extremity Range of Motion Gross Lower Extremity Range of Motion sitting: R and L ankle Comments inversion to neutral prone knee flexion/ ant hip- quad length R 95'/ L 90' Lower Extremity Muscle Strength Testing General Lower Extremity Strength Gross Lower Extremity Strength functional strength testing: sitting: - ankle circles R and L x 20 reps- decreased inversion motion -standing B PF x 20 reps without UE, with 2 loss of balance, able to step to regain indep - supine: bridge 20 reps; - side lying hip abduction to 10' R and L x 20 reps Balance Assessment Time Up Go (TUG) Timed Up and Go Test (TUG) (Seconds) 15 Assistive Devices None 5 Time Sit to Stand Time in Seconds 18 5 Time Sit to Stand Comments use of B UE's Query Text:Normative Data: If Greater Than 15 Seconds, 74% Increase Risk for Recurrent Falls Gait Assessment 2 Minute Walk Total Distance Walked (feet) 290 2 Minute Walk Gait Speed Score (feet/ 2.41 second) Number of Breaks Required 0 2 Minute Walk Test Comments pt reports B knee pain and weakne
== END 2021-07-20 14:28 | disposition home or self-care (01) ==
LOC: ANHPT 14:00
PROVIDERS: PCP Family Medicine; Visit Provider Orthopaedic Surgery
DX: M25.661 Stiffness of right knee, not elsewhere classified (principal); M25.662 Stiffness of left knee, not elsewhere classified; Z96.653 Presence of artificial knee joint, bilateral
CPT/HCPCS: 97110; 97162; 97530

== ENCOUNTER 2021-09-12 14:28 | Outpatient (CLI) | payer MEDICARE, OTHER, SELFPAY ==
[2021-09-12 14:54] LABS: Basophils Absolute Auto 0.1 K/mm3 (0.0-0.1); Basophils Percent Auto 0.7 % (0.2-1.2); Eosinophils Absolute Auto 0.1 K/mm3 (0-0.3); Eosinophils Percent Auto 0.5 % (0-4.4); Hematocrit 43.1 % (37.0-47.0); Hemoglobin 13.5 g/dL (12.0-15.0); Immature Granulocyte Absolute 0.04 K/mm3 (0.00-0.031); Immature Granulocyte Percent A 0.4 % (0-0.5); Lymphocytes Absolute Auto 3.74 K/mm3 (0.9-3.2); Mean Corpuscular HGB Conc 31.3 g/dl (32-36); Mean Corpuscular Hemoglobin 30.3 pg (26-34); Mean Corpuscular Volume 96.9 fl (80-100); Monocytes Absolute Auto 1.1 K/mm3 (0.1-0.6); Monocytes Percent Auto 10.5 % (2.6-8.5); Neutrophils Absolute Auto 5.7 K/mm3 (1.3-6.7); Neutrophils Percent Auto 52.9 % (45.5-73.1); Platelet Count Result 257 k/mm3 (150-375); Red Blood Count 4.45 M/mm3 (4.2-5.4); Red Cell Distribution Width 13.8 % (11.5-14.5); White Blood Count 10.7 K/mm3 (4.5-10.0)
[2021-09-12 16:07] LABS: Alanine Aminotransferase 12 U/L (4-35); Albumin Level 4.2 g/dL (3.5-5.1); Alkaline Phosphatase 77 U/L (38-126); Anion Gap 7 mmol/L (8-16); Aspartate Amino Transferase 19 U/L (14-36); Bilirubin,Total 0.6 mg/dL (0.2-1.3); Blood Urea Nitrogen 24 mg/dL (7-17); Calcium 9.1 mg/dL (8.4-10.2); Carbon Dioxide 33 mmol/L (22-30); Chloride 100 mmol/L (98-107); Estimated Glomerular Filt Rate 43; Glucose 125 mg/dL (65-110); Potassium 3.8 mmol/L (3.4-5.0); Sodium 140 mmol/L (137-145)
[2021-09-15 05:31] LABS: CA 15-3 27 U/mL (<32)
== END 2021-09-12 14:29 | disposition home or self-care (01) ==
LOC: ANHLAB 14:30
PROVIDERS: PCP Family Medicine; Visit Provider Internal Medicine Hematology & Oncology
DX: C50.411 Malignant neoplasm of upper-outer quadrant of right female breast (principal); Z17.0 Estrogen receptor positive status [ER+]
CPT/HCPCS: 36415; 80053; 85025; 86300

== ENCOUNTER → 2021-11-10 13:43 | Outpatient (CLI) | payer MEDICARE, OTHER, SELFPAY ==
--- NOTE | ~2021-11-10 | US_ITS ---
EXAMINATION: US soft tissue UE RT INDICATION: Localized swelling and mass TECHNIQUE: Targeted ultrasound is performed in the medial right upper arm in the area of clinical con cern. COMPARISON: None available FINDINGS: There appears to be a 10 mm isoechoic circumscribed mass corresponding to the area of clini lucho interest which has the appearance of a lipoma. No suspicious cystic or solid mass is identified. IMPRESSION: 1. Right upper arm mass with the appearance of a small lipoma. Reviewed, dictated and finalized at location B.
== END ==
PROVIDERS: PCP Family Medicine; Visit Provider Nurse Practitioner Family
DX: R22.31 Localized swelling, mass and lump, right upper limb (principal)
CPT/HCPCS: 76882

== ENCOUNTER 2021-11-18 14:56 | Emergency (ER) | payer MEDICARE, OTHER, SELFPAY ==
--- NOTE | ~2021-11-18 | XR_ITS ---
EXAMINATION: XR chest 1V portable Exam Date/Time: 11/18/2021 15:45 CDT CLINICAL HISTORY: Palpitation since last night Comparison: 06/11/20. RESULT: Lines, tubes, and devices: Right axillary surgical clips. Lungs and pleura: Senescent changes, otherwise clear. Cardiomediastinal silhouette: Stable cardiomediastinal silhouette. Other: No acute osseous or upper abdominal finding. Absent right breast shadow. IMPRESSION: No acute cardiopulmonary process Reviewed, dictated and finalized at location K.
[2021-11-18 15:07] VITALS: BP 194/65; PULSE 76; RESP 18; TEMP 36.3; O2SAT 97
--- NOTE | 2021-11-18 15:09 | ED.ARRPALP ---
HPI - Arrhythmia/Palpitations General Chief Complaint: Arrhythmia/Palpitations Stated Complaint: HTN Time Seen by Provider: 11/18/21 15:09 Source: patient and family Mode of arrival: ambulatory Limitations: no limitations History of Present Illness HPI narrative: Patient is 81 years old white female presents with fast heartbeat noticed yesterday while watching TV at rest. Patient worked been constant all night and all day currently is slightly getting better but still having palpitation. The monitor showing normal sinus rhythm at this time at 73 bpm. Patient on tamoxifen for breast cancer, history of deep vein thrombosis, on Xarelto. History of hyperlipidemia and thyroidectomy. Patient does not smoke or drink or uses marijuana. Related Data Home Medications Medication Instructions Recorded Confirmed calcium carbonate-vitamin D3 1 tablet PO DAILY 05/05/19 05/25/21 [Calcium 500 + D] tamoxifen 20 mg tablet 20 mg PO DAILY 06/24/20 05/25/21 Allergies Allergy/AdvReac Type Severity Reaction Status Date / Time atorvastatin Allergy Unknown unknown Verified 11/18/21 15:14 celecoxib Allergy Unknown Unknown Verified 11/18/21 15:14 cephalexin Allergy Unknown Unknown Verified 11/18/21 15:14 codeine Allergy Unknown Unknown Verified 11/18/21 15:14 diclofenac Allergy Unknown Unknown Verified 11/18/21 15:14 ezetimibe Allergy Unknown Unknown Verified 11/18/21 15:14 gabapentin Allergy Unknown Unknown Verified 11/18/21 15:14 hydrocodone Allergy Unknown Unknown Verified 11/18/21 15:14 lovastatin Allergy Unknown Unknown Verified 11/18/21 15:14 ondansetron Allergy Unknown Unknown Verified 11/18/21 15:14 Penicillins Allergy Unknown Unknown Verified 11/18/21 15:14 piroxicam Allergy Unknown WEAK, BLACKMAN Verified 11/18/21 15:14 prednisone Allergy Unknown Unknown Verified 11/18/21 15:14 pregabalin Allergy Unknown Unknown Verified 11/18/21 15:14 ranitidine Allergy Unknown Unknown Verified 11/18/21 15:14 simvastatin Allergy Unknown Unknown Verified 11/18/21 15:14 duloxetine AdvReac Unknown DOESN'T Verified 11/18/21 15:14 FEEL RIGHT duloxetine Allergy Unknown DOESN'T Uncoded 11/18/21 15:14 FEEL RIGHT Penicillins Allergy Unknown Increased Uncoded 11/18/21 15:14 Heart Rate CEPHALEXIN MONOHYDRATE AdvReac Unknown WEAK, BLACKMAN Uncoded 11/18/21 15:14 Review of Systems Review of Systems: All systems reviewed & are unremarkable except as noted in HPI and below PMFSH Past Medical History Medical History Breast cancer, right Frequent UTI Left knee DJD Obesity Osteoarthritis of right knee Small bowel obstruction Spinal stenosis of lumbar region Thrombophlebitis leg superficial Surgical History Surgical History H/O mastectomy Lt Mastectomy H/O thyroidectomy History of bilateral knee replacement S/P total knee arthroplasty Family History Family History Father Cerebrovascular accident Mother Family history of malignant neoplasm of stomach Sibling Family history of lymphoma Family history of coronary artery disease Other Carcinoma of colon Diabetes mellitus Family history of arthritis Family history of cardiovascular disease Family history of malignant neoplasm Social History Social History Smoking status: Never smoker Second hand tobacco smoke exposure: No Alcohol intake: never Substance use: never Substance use type: does not use Gender identity (if verbalized by the patient): Female Sexual Orientation (if Verbalized by the Patient): Straight or Heterosexual Exam Narrative: General appearance: Well-developed, well-nourished Skin: Normal color, 1+ edema lower extremity bilaterally up to the knees Head: Normocephalic, nontraumatic Eyes: Clear conjunctiva ENT: Oropharynx normal, ears normal, nose normal
--- NOTE | 2021-11-18 15:13 | ECG_ITS ---
Measurements Intervals [place] Rate: 76 P: 73 [place]: 162 QRS: 3 QRSD: 99 T: 5 QT: 400 QTc: 452 Interpretive Statements SINUS RHYTHM POSSIBLE LEFT ATRIAL ENLARGEMENT DELAYED PRECORDIAL R/S TRANSITION VOLTAGE CRITERIA FOR LVH BORDERLINE T WAVE ABNORMALITY- INFERIOR LEADS BASELINE ARTIFACT- II, III, AVR, AVL, AVF, V1 BORDERLINE ECG Electronically Signed On 11-19-2021 18:48:30 CDT by Jony Love D.O.
[2021-11-18 15:17] VITALS: BP 165/57; PULSE 74; RESP 15; O2SAT 97
[2021-11-18 16:28] LABS: Basophils Absolute Auto 0.1 K/mm3 (0.0-0.1); Basophils Percent Auto 0.5 % (0.2-1.2); Eosinophils Percent Auto 0.2 % (0-4.4); Hemoglobin 13.3 g/dL (12.0-15.0); Immature Granulocyte Absolute 0.07 K/mm3 (0.00-0.031); Immature Granulocyte Percent A 0.6 % (0-0.5); Lymphocytes Absolute Auto 2.24 K/mm3 (0.9-3.2); Lymphocytes Percent Auto 19.1 % (18.3-44.2); Mean Corpuscular HGB Conc 31.7 g/dl (32-36); Mean Corpuscular Hemoglobin 30.2 pg (26-34); Mean Corpuscular Volume 95.5 fl (80-100); Mean Platelet Volume 11.3 fl (7.4-10.4); Monocytes Percent Auto 8.9 % (2.6-8.5); Neutrophils Absolute Auto 8.3 K/mm3 (1.3-6.7); Neutrophils Percent Auto 70.7 % (45.5-73.1); Platelet Count Result 247 k/mm3 (150-375); Red Cell Distribution Width 13.9 % (11.5-14.5); White Blood Count 11.8 K/mm3 (4.5-10.0)
[2021-11-18 16:40] LABS: Alanine Aminotransferase 14 U/L (4-35); Alkaline Phosphatase 80 U/L (38-126); Anion Gap 7 mmol/L (8-16); Aspartate Amino Transferase 27 U/L (14-36); Bilirubin,Total 0.6 mg/dL (0.2-1.3); Blood Urea Nitrogen 19 mg/dL (7-17); Calcium 9.1 mg/dL (8.4-10.2); Carbon Dioxide 31 mmol/L (22-30); Chloride 101 mmol/L (98-107); Estimated CRCL calculation 69 ml/min; Estimated Glomerular Filt Rate > 60; Glucose 127 mg/dL (65-110); Potassium 3.7 mmol/L (3.4-5.0); Sodium 139 mmol/L (137-145)
[2021-11-18 16:48] LABS: NT Pro B Type Natriuretic Pept 301 pg/mL (5-100)
[2021-11-18 16:51] LABS: Troponin I < 0.012 ng/mL (0.000-0.034)
[2021-11-18 17:02] VITALS: BP 159/60; PULSE 72; RESP 22; O2SAT 96
[2021-11-18 17:09] LABS: Thyroid Stimulating Hormone 0.914 uIU/mL (0.465-4.680)
[2021-11-18 17:29] VITALS: BP 159/60; PULSE 65; RESP 11; O2SAT 96
== END 2021-11-18 17:30 | disposition home or self-care (01) ==
PROVIDERS: Emergency Provider Emergency Medicine; PCP Family Medicine
DX: R00.2 Palpitations (principal); E78.5 Hyperlipidemia, unspecified; M17.12 Unilateral primary osteoarthritis, left knee; E66.9 Obesity, unspecified; Z68.35 Body mass index [BMI] 35.0-35.9, adult; Z90.12 Acquired absence of left breast and nipple; E89.0 Postprocedural hypothyroidism; Z96.653 Presence of artificial knee joint, bilateral; Z86.718 Personal history of other venous thrombosis and embolism; R94.31 Abnormal electrocardiogram [ECG] [EKG]; Z85.3 Personal history of malignant neoplasm of breast; Z79.810 Long term (current) use of selective estrogen receptor modulators (SERMs); Z79.01 Long term (current) use of anticoagulants; Z90.11 Acquired absence of right breast and nipple
CPT/HCPCS: 36415; 71045; 80053; 83880; 84443; 84484; 85025; 93005; 99284

== ENCOUNTER 2021-12-01 09:50 | Emergency (ER) | payer MEDICARE, OTHER, SELFPAY ==
[2021-12-01 09:54] VITALS: BP 202/75; PULSE 76; RESP 20; TEMP 36.9; O2SAT 99
[2021-12-01 11:02] VITALS: BP 131/80; PULSE 65; RESP 18; O2SAT 97
[2021-12-01 12:16] LABS: Appearance Urine Clear (Clear); Bilirubin Urine Negative (Negative); Color Urine Yellow (Yellow); Glucose Urine UA Negative (Negative); Ketones Urine Negative (Negative); Leukocyte Esterase Ur Negative LEU/UL (Negative); Nitrate Urine Negative (Negative); Protein Urine Negative (Negative); Specific Grav Ur 1.025 (1.001-1.035); Urobilinogen Urine 0.2 mg/dL (<2.0); pH Urine 6.5 (5.0-9.0)
[2021-12-01 12:17] LABS: Add Urine Microscopic? YES; Blood Urine Trace-Intact (Negative)
[2021-12-01 12:22] LABS: Bacteria Urine Trace /hpf; Mucus Urine Rare /lpf; Squamous Epithelial Cell Urine Few /hpf (Few); WBC Urine 0-3 /hpf
--- NOTE | 2021-12-01 12:57 | ED.FEMALEGU ---
HPI - Female Genitourinary General Chief complaint: LAP WINDER Stated complaint: vaginal burning Time Seen by Provider: 12/01/21 11:59 Source: patient and RN notes reviewed Mode of arrival: ambulatory Limitations: no limitations History of Present Illness HPI Narrative: This is an 81 year old female who presents for evaluation of vaginal burning. She complains of constant vaginal burning and it is mostly when she urinates. This has been occuring for 1 week. She tried 3 days of azo without relief. She has been using monistat for 3 days without relief. She denies increased urinary frequency. She denies abdominal pain, back pain, fever, nausea or vomiting. She denies hematuria, vaginal discharge or vaginal bleeding. Related Data Home Medications Medication Instructions Recorded Confirmed calcium carbonate-vitamin D3 1 tablet PO DAILY 05/05/19 05/25/21 [Calcium 500 + D] tamoxifen 20 mg tablet 20 mg PO DAILY 06/24/20 05/25/21 Allergies Allergy/AdvReac Type Severity Reaction Status Date / Time atorvastatin Allergy Unknown unknown Verified 12/01/21 11:08 celecoxib Allergy Unknown Unknown Verified 12/01/21 11:08 cephalexin Allergy Unknown Unknown Verified 12/01/21 11:08 codeine Allergy Unknown Unknown Verified 12/01/21 11:08 diclofenac Allergy Unknown Unknown Verified 12/01/21 11:08 ezetimibe Allergy Unknown Unknown Verified 12/01/21 11:08 gabapentin Allergy Unknown Unknown Verified 12/01/21 11:08 hydrocodone Allergy Unknown Unknown Verified 12/01/21 11:08 lovastatin Allergy Unknown Unknown Verified 12/01/21 11:08 ondansetron Allergy Unknown Unknown Verified 12/01/21 11:08 Penicillins Allergy Unknown Unknown Verified 12/01/21 11:08 piroxicam Allergy Unknown WEAK, BLACKMAN Verified 12/01/21 11:08 prednisone Allergy Unknown Unknown Verified 12/01/21 11:08 pregabalin Allergy Unknown Unknown Verified 12/01/21 11:08 ranitidine Allergy Unknown Unknown Verified 12/01/21 11:08 simvastatin Allergy Unknown Unknown Verified 12/01/21 11:08 duloxetine AdvReac Unknown DOESN'T Verified 12/01/21 11:08 FEEL RIGHT duloxetine Allergy Unknown DOESN'T Uncoded 12/01/21 11:08 FEEL RIGHT Penicillins Allergy Unknown Increased Uncoded 12/01/21 11:08 Heart Rate CEPHALEXIN MONOHYDRATE AdvReac Unknown WEAK, BLACKMAN Uncoded 12/01/21 11:08 Review of Systems Review of Systems: All systems reviewed & are unremarkable except as noted in HPI and below PMFSH Past Medical History Medical History Breast cancer, right Frequent UTI Left knee DJD Obesity Osteoarthritis of right knee Small bowel obstruction Spinal stenosis of lumbar region Thrombophlebitis leg superficial Surgical History Surgical History H/O mastectomy Lt Mastectomy H/O thyroidectomy History of bilateral knee replacement S/P total knee arthroplasty Family History Family History Father Cerebrovascular accident Mother Family history of malignant neoplasm of stomach Sibling Family history of lymphoma Family history of coronary artery disease Other Carcinoma of colon Diabetes mellitus Family history of arthritis Family history of cardiovascular disease Family history of malignant neoplasm Social History Social History Smoking status: Never smoker Second hand tobacco smoke exposure: No Alcohol intake: never Substance use: never Substance use type: does not use Gender identity (if verbalized by the patient): Female Sexual Orientation (if Verbalized by the Patient): Straight or Heterosexual Exam Const: General: no acute distress and alert Orientation/consciousness: patient oriented x3 Eyes: EOM: EOMs intact bilaterally Chest: Chest palpation & inspection: normal inspection of the chest Resp: Effort & Inspection: no
[2021-12-01] MEDS: FLUCONAZOLE 150 MG TABLET PO (13:37)
== END 2021-12-01 13:52 | disposition home or self-care (01) ==
PROVIDERS: Emergency Provider General Practice; PCP Family Medicine
DX: L29.2 Pruritus vulvae (principal); E89.0 Postprocedural hypothyroidism; Z85.3 Personal history of malignant neoplasm of breast; M17.0 Bilateral primary osteoarthritis of knee; Z90.12 Acquired absence of left breast and nipple; Z96.653 Presence of artificial knee joint, bilateral; Z87.440 Personal history of urinary (tract) infections; Z79.01 Long term (current) use of anticoagulants
CPT/HCPCS: 81001; 87070; 87491; 87591; 87808; 99284; A9270

== ENCOUNTER 2021-12-09 09:26 | Outpatient (CLI) | payer MEDICARE, OTHER, SELFPAY ==
--- NOTE | ~2021-12-09 | MM_ITS ---
EXAMINATION: MM screening sylvain LT w valeriy HISTORY: Screening. Status post right mastectomy. TECHNIQUE: Craniocaudal and mediolateral oblique 3-D tomosynthesis images were obtained and synthetic 2-D images were generated. CAD analysis was submitted and interpreted. COMPARISON: Comparison to multiple prior studies sequentially, with oldest reviewed study dated 12/01. BREAST PARENCHYMAL COMPOSITION: Breast composed of scattered areas of fibroglandular density FINDINGS: There is no evidence of suspicious mass, calcification, or architectural distortion to sugg est malignancy in the left breast. There has been no suspicious interval change. IMPRESSION: 1. No mammographic evidence of malignancy. 2. Recommend routine screening mammography in one year. BI-RADS Category 1: Negative Reviewed, dictated and finalized at location A.
== END 2021-12-09 09:27 | disposition home or self-care (01) ==
LOC: ANHIMG 09:29
PROVIDERS: PCP Family Medicine; Visit Provider Internal Medicine Hematology & Oncology
DX: Z12.31 Encounter for screening mammogram for malignant neoplasm of breast (principal)
CPT/HCPCS: 77063; 77067

== ENCOUNTER 2022-03-28 04:14 | Emergency (ER) | payer MEDICARE, OTHER, SELFPAY ==
[2022-03-28] VITALS (9 sets, daily range): BP systolic 154–185; BP diastolic 56–66; PULSE 60–67; RESP 16–18; TEMP 36.7; O2SAT 93–99
--- NOTE | ~2022-03-28 | CT_ITS ---
EXAMINATION: CT abdomen pelvis w con DATE: 03/28/2022 06:45 INDICATION: Abdominal pain TECHNIQUE: Computed tomography (CT) of the abdomen and pelvis was performed with 100 mL Omnipaque-350 intravenous contrast. The dose-length product was 1421.84 mGy-cm. COMPARISON: None FINDINGS: Mild bibasilar atelectasis. Cardiomegaly. No pericardial or pleural effusion. Status post right maste ctomy. Focal hepatic steatosis along the ligamentum teres. Unchanged elevation of the common bile joey t which measures up to 1.5 cm and is mild central intrahepatic biliary ductal dilation likely seconda ry to prior cholecystectomy. Spleen, pancreas and right kidney are normal. Parapelvic cyst at the upp er pole of the left kidney. Couple subcentimeter bilateral adrenal nodules which demonstrate low atte nuation on prior noncontrast CT consistent with adenomas. There is moderate colonic diverticulosis wi th a sigmoid predominance. There is no adjacent inflammatory change to suggest diverticulitis. Fluid throughout the colon consistent with nonspecific diarrhea. No bowel obstruction.. The uterus is not identified and has likely been surgically resected. Bladder is normal. No free intraperitoneal gas or fluid. No pathologically enlarged abdominal or pelvic lymphadenopathy. Mild thoracic and lumbar spon dylosis with severe lower lumbar facet osteoarthritis. There are bridging osteophytes at multiple lev els in the thoracic spine, consistent with diffuse idiopathic skeletal hyperostosis (DISH). IMPRESSION: 1. Moderate diverticulosis and fluid filling the colon, the latter finding consistent with nonspecifi c diarrhea. Correlate clinically for gastroenteritis. 2. Cardiomegaly. 3. Chronic mild intra and extrahepatic biliary ductal dilation likely related to prior cholecystectom y with no evident obstructing stone or mass. Correlate with liver function tests. Reviewed, dictated and finalized at location A. IMPRESSION: 1. Moderate diverticulosis and fluid filling the colon, the latter finding cons istent with nonspecific diarrhea. Correlate clinically for gastroenteritis. 2. Cardiomegaly. 3. Chronic mild intra and extrahepatic biliary ductal dilation likely related t o prior cholecystectomy with no evident obstructing stone or mass. Correlate liver function tests.
--- NOTE | 2022-03-28 05:10 | ED.ABDPAIN ---
HPI - Abdominal Pain General Chief Complaint: Abdominal Pain Stated Complaint: nausea and abdominal pain Time Seen by Provider: 03/28/22 04:39 History of Present Illness HPI narrative: This is an 81-year-old female with past medical history of bowel obstruction twice, who presents emergency department with concerns for the same. Approximately 7 hours prior to arrival, she noted increasing bowel distention and 4 out of 10 abdominal pain. She states she passed stool about an hour prior to presenting as well as passed gas. She denies fevers, chills, chest pain or shortness of breath. Related Data Home Medications Medication Instructions Recorded Confirmed calcium carbonate 500 mg-vitamin 1 tablet PO DAILY 05/05/19 05/25/21 D3 5 mcg (200 unit) tablet (Calcium 500 + D) tamoxifen 20 mg tablet 20 mg PO DAILY 06/24/20 05/25/21 Allergies Allergy/AdvReac Type Severity Reaction Status Date / Time atorvastatin Allergy Unknown unknown Verified 12/25/21 15:01 celecoxib Allergy Unknown Unknown Verified 12/25/21 15:01 cephalexin Allergy Unknown Unknown Verified 12/25/21 15:01 codeine Allergy Unknown Unknown Verified 12/25/21 15:01 diclofenac Allergy Unknown Unknown Verified 12/25/21 15:01 ezetimibe Allergy Unknown Unknown Verified 12/25/21 15:01 gabapentin Allergy Unknown Unknown Verified 12/25/21 15:01 hydrocodone Allergy Unknown Unknown Verified 12/25/21 15:01 lovastatin Allergy Unknown Unknown Verified 12/25/21 15:01 ondansetron Allergy Unknown Unknown Verified 12/25/21 15:01 Penicillins Allergy Unknown Unknown Verified 12/25/21 15:01 piroxicam Allergy Unknown WEAK, BLACKMAN Verified 12/25/21 15:01 prednisone Allergy Unknown Unknown Verified 12/25/21 15:01 pregabalin Allergy Unknown Unknown Verified 12/25/21 15:01 ranitidine Allergy Unknown Unknown Verified 12/25/21 15:01 simvastatin Allergy Unknown Unknown Verified 12/25/21 15:01 duloxetine AdvReac Unknown DOESN'T Verified 12/25/21 15:01 FEEL RIGHT duloxetine Allergy Unknown DOESN'T Uncoded 12/25/21 15:01 FEEL RIGHT Penicillins Allergy Unknown Increased Uncoded 12/25/21 15:01 Heart Rate CEPHALEXIN MONOHYDRATE AdvReac Unknown WEAK, BLACKMAN Uncoded 12/25/21 15:01 Review of Systems Review of Systems: CONSTITUTIONAL: Denies fever, chills, or sweats. EYES: Denies visual changes, redness, or discharge. ENT: Denies rhinorrhea, congestion, sore throat, or otalgia. CARDIOVASCULAR: Denies chest pain, palpitations, or edema. RESPIRATORY: Denies cough or dyspnea. GASTROINTESTINAL: Abdominal pain and nausea denies vomiting, or diarrhea. GENITOURINARY: Denies dysuria or hematuria. SKIN: Denies rash or itching. MUSCULOSKELETAL: Denies back pain, joint pain, or myalgia. NEUROLOGIC: Denies headache, numbness, dizziness, or weakness. PSYCHIATRIC: Denies anxiety or depression. [facility] Past Medical History Medical History Breast cancer, right Frequent UTI Left knee DJD Obesity Osteoarthritis of right knee Small bowel obstruction Spinal stenosis of lumbar region Thrombophlebitis leg superficial Surgical History Surgical History H/O mastectomy Lt Mastectomy H/O thyroidectomy History of bilateral knee replacement S/P total knee arthroplasty Family History Family History Father Cerebrovascular accident Mother Family history of malignant neoplasm of stomach Sibling Family history of lymphoma Family history of coronary artery disease Other Carcinoma of colon Diabetes mellitus Family history of arthritis Family history of cardiovascular disease Family history of malignant neoplasm Social History Social History Smoking status: Never smoker Second hand tobacco smoke exposure: No Alcohol intake: never Substance use: never Substance use t
[2022-03-28 05:30] LABS: Basophils Absolute Auto 0.1 K/mm3 (0.0-0.1); Basophils Percent Auto 0.4 % (0.2-1.2); Eosinophils Percent Auto 0.2 % (0-4.4); Hematocrit 38.4 % (37.0-47.0); Hemoglobin 12.4 g/dL (12.0-15.0); Immature Granulocyte Absolute 0.05 K/mm3 (0.00-0.031); Immature Granulocyte Percent A 0.4 % (0-0.5); Lymphocytes Absolute Auto 2.43 K/mm3 (0.9-3.2); Lymphocytes Percent Auto 20.3 % (18.3-44.2); Mean Corpuscular HGB Conc 32.3 g/dl (32-36); Mean Corpuscular Hemoglobin 30.2 pg (26-34); Mean Corpuscular Volume 93.7 fl (80-100); Mean Platelet Volume 11.1 fl (7.4-10.4); Monocytes Absolute Auto 0.9 K/mm3 (0.1-0.6); Monocytes Percent Auto 7.4 % (2.6-8.5); Neutrophils Absolute Auto 8.5 K/mm3 (1.3-6.7); Neutrophils Percent Auto 71.3 % (45.5-73.1); Platelet Count Result 236 k/mm3 (150-375); Red Cell Distribution Width 14.5 % (11.5-14.5)
[2022-03-28] MEDS: SODIUM CHLORIDE 0.9% IV 1,000 ML 999 ML IV CONT (05:33)
[2022-03-28] MEDS: PROCHLORPERAZINE EDISYLATE 10 MG/2 ML VIAL IV PUSH (05:33)
[2022-03-28 05:41] LABS: Alanine Aminotransferase 19 U/L (6-35); Albumin Level 3.7 g/dL (3.5-5.1); Alkaline Phosphatase 76 U/L (38-126); Anion Gap 8 mmol/L (8-16); Aspartate Amino Transferase 22 U/L (14-36); Blood Urea Nitrogen 18 mg/dL (7-17); Calcium 9.2 mg/dL (8.4-10.2); Carbon Dioxide 28 mmol/L (22-30); Chloride 101 mmol/L (98-107); Estimated CRCL calculation 60 ml/min; Estimated Glomerular Filt Rate > 60; Glucose 143 mg/dL (65-110); Lactic Acid Reflex 1.4 mmol/L (0.7-2.0); Sodium 137 mmol/L (137-145)
[2022-03-28 05:46] LABS: INR 1.5; Prothrombin Time 17.2 Seconds (11.1-14.7)
[2022-03-28 07:12] LABS: Appearance Urine Slightly Cloudy (Clear); Bilirubin Urine Negative (Negative); Blood Urine Negative (Negative); Glucose Urine UA Negative (Negative); Ketones Urine Negative (Negative); Leukocyte Esterase Ur Negative LEU/UL (Negative); Nitrate Urine Negative (Negative); Protein Urine Negative (Negative); Specific Grav Ur <= 1.005 (1.001-1.035); Urobilinogen Urine 0.2 mg/dL (<2.0); pH Urine 5.5 (5.0-9.0)
[2022-03-28 07:27] LABS: Add Urine Microscopic? NO; Color Urine Light Yellow (Yellow)
[2022-03-28 07:31] LABS: Bacteria Urine Trace /hpf; Calcium Oxalate Crystals Urine Present /hpf; Mucus Urine Rare /lpf; RBC Urine 0-2 /hpf (0-2); Squamous Epithelial Cell Urine Rare /hpf (Few)
== END 2022-03-28 08:28 | disposition home or self-care (01) ==
PROVIDERS: Emergency Provider Preventive Medicine Aerospace Medicine; PCP Family Medicine
DX: K57.90 Diverticulosis of intestine, part unspecified, without perforation or abscess without bleeding (principal); R11.0 Nausea; R14.0 Abdominal distension (gaseous); M17.11 Unilateral primary osteoarthritis, right knee; E89.0 Postprocedural hypothyroidism; E66.9 Obesity, unspecified; Z68.31 Body mass index [BMI] 31.0-31.9, adult; Z90.11 Acquired absence of right breast and nipple; Z85.3 Personal history of malignant neoplasm of breast; Z87.440 Personal history of urinary (tract) infections; Z96.653 Presence of artificial knee joint, bilateral; Z79.01 Long term (current) use of anticoagulants
CPT/HCPCS: 36415; 74177; 80053; 81003; 83605; 85025; 85610; 96365; 96375; 99284; J0131; J0780; J7030; Q9967

== ENCOUNTER 2022-04-30 14:26 | Outpatient (CLI) | payer MEDICARE, OTHER, SELFPAY ==
[2022-04-30 14:47] LABS: Basophils Absolute Auto 0.1 K/mm3 (0.0-0.1); Basophils Percent Auto 0.7 % (0.2-1.2); Eosinophils Absolute Auto 0.1 K/mm3 (0-0.3); Eosinophils Percent Auto 0.7 % (0-4.4); Hematocrit 38.4 % (37.0-47.0); Hemoglobin 12.4 g/dL (12.0-15.0); Immature Granulocyte Absolute 0.03 K/mm3 (0.00-0.031); Immature Granulocyte Percent A 0.3 % (0-0.5); Lymphocytes Percent Auto 40.1 % (18.3-44.2); Mean Corpuscular HGB Conc 32.3 g/dl (32-36); Mean Corpuscular Hemoglobin 30.8 pg (26-34); Mean Corpuscular Volume 95.3 fl (80-100); Mean Platelet Volume 10.8 fl (7.4-10.4); Monocytes Absolute Auto 0.8 K/mm3 (0.1-0.6); Monocytes Percent Auto 8.8 % (2.6-8.5); Neutrophils Absolute Auto 4.6 K/mm3 (1.3-6.7); Neutrophils Percent Auto 49.4 % (45.5-73.1); Platelet Count Result 243 k/mm3 (150-375); Red Blood Count 4.03 M/mm3 (4.2-5.4); Red Cell Distribution Width 13.9 % (11.5-14.5); White Blood Count 9.2 K/mm3 (4.5-10.0)
[2022-04-30 16:03] LABS: Alanine Aminotransferase 16 U/L (6-35); Albumin Level 4.1 g/dL (3.5-5.1); Alkaline Phosphatase 76 U/L (38-126); Anion Gap 12 mmol/L (8-16); Aspartate Amino Transferase 17 U/L (14-36); Bilirubin,Total 0.6 mg/dL (0.2-1.3); Blood Urea Nitrogen 17 mg/dL (7-17); Carbon Dioxide 31 mmol/L (22-30); Chloride 96 mmol/L (98-107); Estimated Glomerular Filt Rate > 60; Glucose 110 mg/dL (65-110); Potassium 3.9 mmol/L (3.4-5.0); Sodium 139 mmol/L (137-145)
[2022-05-02 14:29] LABS: CA 15-3 30 U/mL (<32)
== END 2022-04-30 14:27 | disposition home or self-care (01) ==
LOC: ANHLAB 14:28
PROVIDERS: PCP Family Medicine; Visit Provider Internal Medicine Hematology & Oncology
DX: C50.411 Malignant neoplasm of upper-outer quadrant of right female breast (principal); Z17.0 Estrogen receptor positive status [ER+]
CPT/HCPCS: 36415; 80053; 85025; 86300

== ENCOUNTER 2022-12-12 10:17 | Outpatient (CLI) | payer MEDICARE, OTHER, SELFPAY ==
--- NOTE | ~2022-12-12 | MM_ITS ---
EXAMINATION: MM screening sylvain LT w valeriy HISTORY: Screening mammogram TECHNIQUE: Craniocaudal and mediolateral oblique 3-D tomosynthesis images were obtained and synthetic 2-D images were generated. CAD analysis was submitted and interpreted. COMPARISON: 12/09/2021 left screening mammogram 01/11/2021 diagnostic left mammogram and limited left breast ultrasound, both reported negative 12/07/2020, 12/03/2019 left screening mammogram examinations BREAST PARENCHYMAL COMPOSITION: There are scattered areas of fibroglandular density. FINDINGS: There is no evidence of suspicious mass, calcification, or architectural distortion to sugg est malignancy in either breast. There has been no suspicious interval change. IMPRESSION: 1. No mammographic evidence of malignancy. 2. Recommend routine screening mammography in one year. BI-RADS Category 1: Negative Reviewed, dictated and finalized at location A.
== END 2022-12-12 10:18 | disposition home or self-care (01) ==
LOC: ANHIMG 10:20
PROVIDERS: PCP Family Medicine; Visit Provider Internal Medicine Hematology & Oncology
DX: Z12.31 Encounter for screening mammogram for malignant neoplasm of breast (principal)
CPT/HCPCS: 77063; 77067

== ENCOUNTER 2022-12-12 10:50 | Outpatient (CLI) | payer MEDICARE, OTHER, SELFPAY ==
[2022-12-12 11:07] LABS: Basophils Absolute Auto 0.1 K/mm3 (0.0-0.1); Basophils Percent Auto 0.7 % (0.2-1.2); Eosinophils Absolute Auto 0.1 K/mm3 (0-0.3); Eosinophils Percent Auto 0.9 % (0-4.4); Hematocrit 39.8 % (37.0-47.0); Immature Granulocyte Absolute 0.07 K/mm3 (0.00-0.031); Immature Granulocyte Percent A 0.8 % (0-0.5); Lymphocytes Absolute Auto 3.48 K/mm3 (0.9-3.2); Lymphocytes Percent Auto 38.9 % (18.3-44.2); Mean Corpuscular HGB Conc 32.7 g/dl (32-36); Mean Corpuscular Hemoglobin 30.5 pg (26-34); Mean Corpuscular Volume 93.4 fl (80-100); Mean Platelet Volume 10.7 fl (7.4-10.4); Monocytes Absolute Auto 0.9 K/mm3 (0.1-0.6); Neutrophils Absolute Auto 4.4 K/mm3 (1.3-6.7); Neutrophils Percent Auto 48.7 % (45.5-73.1); Platelet Count Result 260 k/mm3 (150-375); Red Blood Count 4.26 M/mm3 (4.2-5.4); Red Cell Distribution Width 14.3 % (11.5-14.5); White Blood Count 8.9 K/mm3 (4.5-10.0)
[2022-12-12 16:49] LABS: Alanine Aminotransferase 20 U/L (6-35); Alkaline Phosphatase 85 U/L (38-126); Anion Gap 5 mmol/L (8-16); Aspartate Amino Transferase 25 U/L (14-36); Bilirubin,Total 1.2 mg/dL (0.2-1.3); Blood Urea Nitrogen 15 mg/dL (7-17); Carbon Dioxide 33 mmol/L (22-30); Chloride 102 mmol/L (98-107); Estimated Glomerular Filt Rate > 60; Glucose 116 mg/dL (65-110); Potassium 3.7 mmol/L (3.4-5.0); Sodium 140 mmol/L (137-145)
[2022-12-16 05:50] LABS: CA 15-3 35 U/mL (<32)
== END 2022-12-12 10:51 | disposition home or self-care (01) ==
LOC: ANHLAB 10:52
PROVIDERS: PCP Family Medicine; Visit Provider Internal Medicine Hematology & Oncology
DX: C50.411 Malignant neoplasm of upper-outer quadrant of right female breast (principal); Z17.0 Estrogen receptor positive status [ER+]
CPT/HCPCS: 36415; 77063; 77067; 80053; 85025; 86300

== ENCOUNTER 2023-03-05 12:42 | Emergency (ER) | payer MEDICARE, OTHER, SELFPAY ==
--- NOTE | ~2023-03-05 | XR_ITS ---
EXAMINATION: XR chest 1V portable DATE: 03/05/2023 17:13 INDICATION: Hypertension TECHNIQUE: frontal view of the chest was obtained. COMPARISON: Chest radiograph dated 11/18/[address] abdomen and pelvis dated 03/28/2022 FINDINGS: Cardiomegaly and persistent hazy opacity at the left lower lung zone without blunting at the costophr enic angle corresponding to a small paracardial fat pad on prior CT. No other airspace opacities, pul monary edema, pleural effusion or pneumothorax. Cardiomegaly. There are bridging osteophytes at multi ple levels in the spine, consistent with diffuse idiopathic skeletal hyperostosis (DISH). IMPRESSION: 1. No acute cardiopulmonary disease. Reviewed, dictated and finalized at location A.
[2023-03-05 12:45] VITALS: BP 192/66; PULSE 84; RESP 20; TEMP 36.5; O2SAT 96
[2023-03-05 15:54] VITALS: RESP 12; O2SAT 97
[2023-03-05 15:59] VITALS: BP 165/71; PULSE 68; RESP 15; O2SAT 99
--- NOTE | 2023-03-05 16:58 | ECG_ITS ---
Measurements Intervals [place] Rate: 61 P: 68 [place]: 165 QRS: 0 QRSD: 92 T: 1 QT: 452 QTc: 456 Interpretive Statements SINUS RHYTHM WITH OCCASIONAL SUPRAVENTRICULAR PREMATURE COMPLEXES POSSIBLE LEFT ATRIAL ENLARGEMENT [-0.1mV P WAVE IN V1/V2] COMPARED TO ECG 11/18/2021 15:11:59 NO SIGNIFICANT CHANGES Electronically Signed On 03-06-2023 11:34:43 CDT by Moisés Thornton M.D.
--- NOTE | 2023-03-05 17:35 | ED.GENADULT ---
HPI - General Adult General Chief complaint: Recheck/Abnormal Lab/Rx Stated complaint: Blood pressure issues Time Seen by Provider: 03/05/23 16:13 History of Present Illness HPI narrative: 82-year-old female presented to the emergency department for evaluation of elevated blood pressure. Patient does have history of hypertension and anxiety. Patient states that her blood pressure typically runs in the 140 range but it was 170 this morning. Patient states she did take her losartan this did help with her blood pressure. Patient did not take her Lasix because she states she ends up spending too much time in the restroom. Patient states he does have some increased anxiety associated with her elevated blood pressure. Patient denies any chest pain or shortness of breath. Patient denies any nausea vomiting diarrhea. Related Data Home Medications Medication Instructions Recorded Confirmed calcium carbonate 500 mg-vitamin 1 tablet PO DAILY 05/05/19 12/05/22 D3 5 mcg (200 unit) tablet (Calcium 500 + D) Allergies Allergy/AdvReac Type Severity Reaction Status Date / Time atorvastatin Allergy Unknown unknown Verified 03/05/23 15:54 celecoxib Allergy Unknown Unknown Verified 03/05/23 15:54 cephalexin Allergy Unknown Unknown Verified 03/05/23 15:54 codeine Allergy Unknown Unknown Verified 03/05/23 15:54 diclofenac Allergy Unknown Unknown Verified 03/05/23 15:54 ezetimibe Allergy Unknown Unknown Verified 03/05/23 15:54 gabapentin Allergy Unknown Unknown Verified 03/05/23 15:54 hydrocodone Allergy Unknown Unknown Verified 03/05/23 15:54 lovastatin Allergy Unknown Unknown Verified 03/05/23 15:54 ondansetron Allergy Unknown Unknown Verified 03/05/23 15:54 Penicillins Allergy Unknown Unknown Verified 03/05/23 15:54 piroxicam Allergy Unknown WEAK, BLACKMAN Verified 03/05/23 15:54 prednisone Allergy Unknown Unknown Verified 03/05/23 15:54 pregabalin Allergy Unknown Unknown Verified 03/05/23 15:54 ranitidine Allergy Unknown Unknown Verified 03/05/23 15:54 simvastatin Allergy Unknown Unknown Verified 03/05/23 15:54 hydralazine AdvReac Mild Palpitation Verified 03/05/23 15:54 s duloxetine AdvReac Unknown DOESN'T Verified 03/05/23 15:54 FEEL RIGHT duloxetine Allergy Unknown DOESN'T Uncoded 03/05/23 15:54 FEEL RIGHT Penicillins Allergy Unknown Increased Uncoded 03/05/23 15:54 Heart Rate CEPHALEXIN MONOHYDRATE AdvReac Unknown WEAK, BLACKMAN Uncoded 03/05/23 15:54 Review of Systems Review of Systems: All systems reviewed & are unremarkable except as noted in HPI and below PMFSH Past Medical History Medical History Breast cancer, right Frequent UTI Left knee DJD Obesity Osteoarthritis of right knee Small bowel obstruction Spinal stenosis of lumbar region Thrombophlebitis leg superficial Surgical History Surgical History H/O mastectomy Lt Mastectomy H/O thyroidectomy History of bilateral knee replacement S/P total knee arthroplasty Family History Family History Father Cerebrovascular accident Mother Family history of malignant neoplasm of stomach Sibling Family history of lymphoma Family history of coronary artery disease Other Carcinoma of colon Diabetes mellitus Family history of arthritis Family history of cardiovascular disease Family history of malignant neoplasm Social History Social History Smoking status: Never smoker Second hand tobacco smoke exposure: No Alcohol intake: never Substance use: never Substance use type: does not use Living arrangements: with family Occupation/Education: retired Gender identity (if verbalized by the patient): Female Sexual Orientation (if Verbalized by the Patient): Straight or Heterosexual Exam Narrative: APPEARANCE: Well appear
[2023-03-05 17:37] VITALS: BP 164/70; PULSE 64; RESP 16; O2SAT 96
[2023-03-05 18:09] LABS: Appearance Urine Cloudy (Clear); Bacteria Urine 2+ /hpf; Bilirubin Urine Negative (Negative); Blood Urine Negative (Negative); Color Urine Yellow (Yellow); Glucose Urine UA Negative (Negative); Ketones Urine Negative (Negative); Leukocyte Esterase Ur Trace LEU/UL (Negative); Mucus Urine Present /lpf; Need Manual Microscopic Reviewed; Nitrate Urine Negative (Negative); Protein Urine Negative (Negative); Squamous Epithelial Cell Urine Few /hpf (Few); Urobilinogen Urine 0.2 mg/dL (<2.0); pH Urine 5.5 (5.0-9.0)
[2023-03-05 18:12] VITALS: BP 141/64; PULSE 59; RESP 16; O2SAT 98
[2023-03-05 18:12] LABS: Add Urine Microscopic? YES
[2023-03-05] MEDS: LORazepam (*CRX) 0.5 MG TABLET PO (18:19)
[2023-03-05 18:22] VITALS: BP 133/69; PULSE 66; RESP 18; O2SAT 97
== END 2023-03-05 18:23 | disposition home or self-care (01) ==
PROVIDERS: Emergency Provider Emergency Medicine; PCP Family Medicine
DX: I10 Essential (primary) hypertension (principal); F41.9 Anxiety disorder, unspecified; R82.998 Other abnormal findings in urine; E89.0 Postprocedural hypothyroidism; M17.0 Bilateral primary osteoarthritis of knee; Z96.653 Presence of artificial knee joint, bilateral; Z85.3 Personal history of malignant neoplasm of breast; Z87.440 Personal history of urinary (tract) infections; Z90.12 Acquired absence of left breast and nipple; Z79.01 Long term (current) use of anticoagulants; I49.1 Atrial premature depolarization; R94.31 Abnormal electrocardiogram [ECG] [EKG]
CPT/HCPCS: 71045; 81001; 87086; 93005; 99283; A9270

== ENCOUNTER 2023-03-27 14:33 | Outpatient (CLI) | payer MEDICARE, OTHER, SELFPAY ==
[2023-03-27 14:50] LABS: Basophils Absolute Auto 0.1 K/mm3 (0.0-0.1); Basophils Percent Auto 0.7 % (0.2-1.2); Eosinophils Absolute Auto 0.1 K/mm3 (0-0.3); Eosinophils Percent Auto 0.7 % (0-4.4); Hematocrit 40.8 % (37.0-47.0); Hemoglobin 13.1 g/dL (12.0-15.0); Immature Granulocyte Absolute 0.04 K/mm3 (0.00-0.031); Immature Granulocyte Percent A 0.4 % (0-0.5); Lymphocytes Absolute Auto 3.73 K/mm3 (0.9-3.2); Lymphocytes Percent Auto 34.7 % (18.3-44.2); Mean Corpuscular HGB Conc 32.1 g/dl (32-36); Mean Corpuscular Hemoglobin 30.2 pg (26-34); Monocytes Absolute Auto 0.9 K/mm3 (0.1-0.6); Monocytes Percent Auto 8.3 % (2.6-8.5); Neutrophils Absolute Auto 5.9 K/mm3 (1.3-6.7); Neutrophils Percent Auto 55.2 % (45.5-73.1); Platelet Count Result 271 k/mm3 (150-375); Red Blood Count 4.34 M/mm3 (4.2-5.4); Red Cell Distribution Width 14.4 % (11.5-14.5); White Blood Count 10.8 K/mm3 (4.5-10.0)
[2023-03-27 16:37] LABS: Alanine Aminotransferase 15 U/L (6-35); Albumin Level 4.2 g/dL (3.5-5.1); Alkaline Phosphatase 87 U/L (38-126); Anion Gap 7 mmol/L (8-16); Aspartate Amino Transferase 20 U/L (14-36); Bilirubin,Total 1.2 mg/dL (0.2-1.3); Blood Urea Nitrogen 20 mg/dL (7-17); Calcium 9.1 mg/dL (8.4-10.2); Carbon Dioxide 32 mmol/L (22-30); Chloride 99 mmol/L (98-107); Estimated Glomerular Filt Rate 53; Glucose 127 mg/dL (65-110); Potassium 4.1 mmol/L (3.4-5.0); Sodium 138 mmol/L (137-145)
[2023-03-31 16:55] LABS: CA 15-3 40 U/mL (<32)
== END 2023-03-27 14:34 | disposition home or self-care (01) ==
PROVIDERS: PCP Family Medicine; Visit Provider Internal Medicine Hematology & Oncology
DX: C50.411 Malignant neoplasm of upper-outer quadrant of right female breast (principal); Z17.0 Estrogen receptor positive status [ER+]
CPT/HCPCS: 36415; 80053; 85025; 86300

== ENCOUNTER 2023-04-11 09:09 | Outpatient (CLI) | payer MEDICARE, OTHER, SELFPAY ==
--- NOTE | ~2023-04-11 | PE_ITS ---
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 TECHNIQUE: Blood glucose level was 104 mg/dL. 9.299 mCi of 18-fluorodeoxyglucose (18-FDG) was adminis tered i.v. Low dose computed tomography (CT) images were acquired from the base of the brain to the p roximal thighs for attenuation correction and anatomic localization. Automated exposure control was e mployed. Dose-length product (DLP) was 1264 mGy-cm. Positron emission tomography (PET) images were ac quired in the same distribution. COMPARISON: CT abdomen and pelvis 03/28/2022 FINDINGS: Head/neck: There are no pathologically enlarged lymph nodes. Chest: Lungs demonstrate mild atelectasis. No pleural effusion. Cardiomegaly is noted. No pericardial effusion. There are no pathologically enlarged lymph nodes. There are changes of right mastectomy. T here is a sclerotic lesion in T6 vertebral body with increased activity. Abdomen/pelvis/proximal thighs: The liver, spleen, pancreas, adrenal glands, and kidneys are normal. There are changes of cholecystectomy. There is diverticulosis of the colon without evidence of divert iculitis. There are no dilated loops of bowel. There are no pathologically enlarged lymph nodes. Ther e is no free intraperitoneal fluid. There is a worsened 2.8 cm sclerotic lesion in left ilium with in creased activity. IMPRESSION: 1. Bone lesions with increased activity, consistent with metastatic disease. Reviewed, dictated and finalized at location E.
[2023-04-11 09:47] LABS: Glucose Point of Care 104 mg/dl (65-105)
== END 2023-04-11 09:10 | disposition home or self-care (01) ==
PROVIDERS: PCP Family Medicine; Visit Provider Internal Medicine Hematology & Oncology
DX: C50.411 Malignant neoplasm of upper-outer quadrant of right female breast (principal); Z17.0 Estrogen receptor positive status [ER+]; M89.9 Disorder of bone, unspecified
CPT/HCPCS: 78815; A9552

== ENCOUNTER 2023-05-15 15:02 | Outpatient (CLI) | payer MEDICARE, OTHER, SELFPAY ==
[2023-05-15 15:17] LABS: Basophils Percent Auto 0.8 % (0.2-1.2); Eosinophils Percent Auto 0.4 % (0-4.4); Hematocrit 37.3 % (37.0-47.0); Hemoglobin 12.1 g/dL (12.0-15.0); Lymphocytes Absolute Auto 3.13 K/mm3 (0.9-3.2); Lymphocytes Percent Auto 62.9 % (18.3-44.2); Mean Corpuscular HGB Conc 32.4 g/dl (32-36); Mean Corpuscular Hemoglobin 31.1 pg (26-34); Mean Corpuscular Volume 95.9 fl (80-100); Mean Platelet Volume 10.1 fl (7.4-10.4); Monocytes Absolute Auto 0.3 K/mm3 (0.1-0.6); Monocytes Percent Auto 5.6 % (2.6-8.5); Neutrophils Absolute Auto 1.5 K/mm3 (1.3-6.7); Neutrophils Percent Auto 30.3 % (45.5-73.1); Platelet Count Result 120 k/mm3 (150-375); Red Blood Count 3.89 M/mm3 (4.2-5.4); Red Cell Distribution Width 15.3 % (11.5-14.5)
[2023-05-15 15:23] LABS: Atypical Lymphocytes Present; Platelet Estimate Decreased (Adequate); Schistocytes None Seen (NORMAL)
[2023-05-15 16:58] LABS: Alanine Aminotransferase 12 U/L (6-35); Albumin Level 4.2 g/dL (3.5-5.1); Alkaline Phosphatase 79 U/L (38-126); Anion Gap 4 mmol/L (8-16); Aspartate Amino Transferase 15 U/L (14-36); Blood Urea Nitrogen 20 mg/dL (7-17); Calcium 9.2 mg/dL (8.4-10.2); Carbon Dioxide 35 mmol/L (22-30); Chloride 98 mmol/L (98-107); Estimated Glomerular Filt Rate 36; Glucose 120 mg/dL (65-110); Sodium 137 mmol/L (137-145)
[2023-05-18 06:02] LABS: CA 15-3 45 U/mL (<32)
== END 2023-05-15 15:03 | disposition home or self-care (01) ==
LOC: ANHLAB 15:06
PROVIDERS: PCP Family Medicine; Visit Provider Internal Medicine Hematology & Oncology
DX: C50.411 Malignant neoplasm of upper-outer quadrant of right female breast (principal); Z17.0 Estrogen receptor positive status [ER+]
CPT/HCPCS: 36415; 80053; 85025; 86300

== ENCOUNTER 2023-05-30 14:06 | Outpatient (CLI) | payer MEDICARE, OTHER, SELFPAY ==
--- NOTE | ~2023-05-30 | US_ITS ---
EXAMINATION: US venous doppler [facility] DATE: 05/30/2023 15:03 INDICATION: Left lower limb swelling TECHNIQUE: Grayscale ultrasound images without and with compression and Doppler ultrasound images of the left lower extremity veins were obtained. COMPARISON: None. FINDINGS: The visualized portions of left common femoral vein, profunda (deep) femoral vein, femoral vein, popl iteal vein, peroneal veins, posterior tibial veins and greater saphenous vein outflow are patent. Non compressible occlusive thrombosis of the greater saphenous vein from the proximal thigh through the m id calf. The left greater saphenous vein remains patent and compressible at the ankle. IMPRESSION: 1. No deep venous thrombosis in the left lower limb. 2. Extensive superficial occlusive venous thrombosis of the greater saphenous vein from the proximal left thigh through the mid calf. Reviewed, dictated and finalized at location A. 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 No deep venous thrombosis in the left lower limb. 2. Extensive superficial occlusive venous thrombosis of the greater saphenous v ein from the proximal left thigh through the mid calf.
== END 2023-05-30 14:07 | disposition home or self-care (01) ==
PROVIDERS: PCP Family Medicine; Visit Provider Internal Medicine Hematology & Oncology
DX: R60.0 Localized edema (principal); I73.9 Peripheral vascular disease, unspecified
CPT/HCPCS: 36415; 80047; 80053; 85025; 86300; 93971; 99213; G0463

== ENCOUNTER 2023-08-08 11:09 | Outpatient (CLI) | payer MEDICARE, OTHER, SELFPAY ==
--- NOTE | ~2023-08-08 | XR_ITS ---
EXAMINATION: XR mandible min 4V DATE: 08/08/2023 11:49 INDICATION: Left jaw pain. TECHNIQUE: 4 views of the mandible were obtained. COMPARISON: PET/CT 04/11/2023 FINDINGS: Bone alignment is normal. No fracture. The temporomandibular joints are normal. IMPRESSION: 1. No fracture. Reviewed, dictated and finalized at location E. TABOUT CREW IMPRESSION: 1. No fracture.
== END 2023-08-08 11:10 | disposition home or self-care (01) ==
PROVIDERS: PCP Family Medicine; Visit Provider Internal Medicine Hematology & Oncology
DX: R68.84 Jaw pain (principal)
CPT/HCPCS: 70110; 96372; J9395

== ENCOUNTER 2023-10-01 09:02 | Outpatient (CLI) | payer MEDICARE, OTHER, SELFPAY ==
--- NOTE | ~2023-10-01 | NM_ITS ---
EXAMINATION: NM bone scan whole body DATE: 10/01/2023 12:53 INDICATION: Ligament neoplasm of the upper outer quadrant of the right breast TECHNIQUE: 25.7 mCi Tc-99m HDP was administered intravenously. Delayed whole-body scintigrams were o btained. COMPARISON: PET/CT dated 04/11/2023 FINDINGS: There is a prominent focus of increased uptake at the mid left femoral diaphysis which concerning for metastatic disease. Focus of mild uptake at the anterior left seventh rib and additional subtle foci of mild increased uptake at the subtrochanteric proximal right femur and at the the right side of th e T6 vertebral body which corresponding in location to FDG avid lesion on prior PET/CT also suspiciou s for metastatic disease. Photopenic defects at the bilateral knees consistent with total knee arthro plasties. Likely degenerative joint centered uptake at the bilateral acromioclavicular joints, knees and ankles and at the right C3-C4 facet joint with severe hypertrophic changes evident on the prior P ET/CT. IMPRESSION: 1. A few foci of abnormal increased bone uptake as detailed above, the 3 of which were included on th e prior PET/CT demonstrating increased FDG uptake consistent with metastatic disease. Reviewed, dictated and finalized at location A. IMPRESSION: 1. A few foci of abnormal increased bone uptake as detailed above, the 3 of [facility] were included on the prior PET/CT demonstrating increased FDG uptake consist ent with metastatic disease.
--- NOTE | ~2023-10-01 | CT_ITS ---
Clinical Indication: Breast cancer CT Scan of the Chest, Abdomen, and Pelvis with Contrast: Technique: Contiguous sections were acquired throughout the chest, abdomen, and pelvis after intraven ous administration of 100 cc of Omnipaque 350. Dose reduction technique was used on this scan by harvey hickeying automated exposure control and iterative reconstruction technique. The dose-length product (DL P) was 1444.41 mGy-cm. COMPARISON: 03/28/2022 Findings: There is no evidence of any significant mediastinal, hilar or axillary lymphadenopathy. The mediastin al soft tissues appear normal. There is no evidence of pleural or pericardial effusion. The lungs are clear. No pulmonary nodules or infiltrates are noted. The liver, spleen, pancreas, right adrenal gland, and kidneys are within normal limits. Gallbladder p robably absent. Probable small left adrenal nodule, stable from prior exam. There are atherosclerotic calcifications of the aorta. No lymphadenopathy. No bowel obstruction or bowel wall thickening. There is no evidence to suggest acute appendicitis. Urinary bladder is unremarkable. No pelvic mass seen. No ascites. T6 sclerotic lesion present. Additional sclerotic lesion present in the left iliac bone near the SI j oint region. Impression: Sclerotic lesions of T6 and left iliac bone, which could reflect treated disease. No soft tissue metastatic disease/malignancy evident. Probable small left adrenal nodule, unchanged. Reviewed, dictated and finalized at [facility]. Impression: Sclerotic lesions of T6 and left iliac bone, which could reflect treated diseas e. No soft tissue metastatic disease/malignancy evident. Probable small left adrenal nodule, unchanged.
[2023-10-01 09:34] LABS: Estimated Glomerular Filt Rate 43
== END 2023-10-01 09:03 | disposition home or self-care (01) ==
PROVIDERS: PCP Family Medicine; Visit Provider Internal Medicine Hematology & Oncology
DX: C50.411 Malignant neoplasm of upper-outer quadrant of right female breast (principal); Z17.0 Estrogen receptor positive status [ER+]
CPT/HCPCS: 71260; 74177; 78306; A9503; Q9967

== ENCOUNTER 2023-11-29 10:15 | Outpatient (CLI) | payer MEDICARE, OTHER, SELFPAY ==
[2023-11-29 12:33] LABS: Hemoglobin A1C 5.8 % (<5.7)
[2023-11-29 16:31] LABS: Appearance Urine Clear (Clear); Bacteria Urine None Seen /hpf; Bilirubin Urine Negative (Negative); Blood Urine Negative (Negative); Color Urine Yellow (Yellow); Glucose Urine UA Negative (Negative); Ketones Urine Negative (Negative); Leukocyte Esterase Ur 2+ LEU/UL (Negative); Nitrate Urine Negative (Negative); Non Pathogenic Casts 0-2; Protein Urine Negative (Negative); RBC Urine 0-2 /hpf (0-2); Squamous Epithelial Cell Urine Occasional /hpf (Few)
[2023-11-29 17:03] LABS: Add Urine Microscopic? YES
== END 2023-11-29 10:16 | disposition home or self-care (01) ==
LOC: ANHLAB 10:19
PROVIDERS: Physician Assistant; PCP Family Medicine; Visit Provider Internal Medicine Hematology & Oncology
DX: R60.0 Localized edema (principal); I10 Essential (primary) hypertension; E03.9 Hypothyroidism, unspecified; R73.01 Impaired fasting glucose
CPT/HCPCS: 36415; 81001; 83036; 84443

== ENCOUNTER 2024-02-05 07:23 | Outpatient (CLI) | payer MEDICARE, OTHER, SELFPAY ==
--- NOTE | ~2024-02-05 | CT_ITS ---
EXAMINATION: CT chest abdomen pelvis w con DATE: 02/05/2024 07:53 INDICATION: Right breast cancer TECHNIQUE: Computed tomography (CT) of the chest, abdomen, and pelvis was performed with 100 mL Omnip aque-350 intravenous contrast. Automated exposure control and iterative reconstruction technique were employed. The dose-length product was 1399.10 mGy-cm. COMPARISON: CT studies dated 10/01/2023, 03/28/2022 and 07/20/2020, bone scan dated 02/05/2024 and PET/CT dated 04/11/2023 FINDINGS: CHEST CT: Mild discoid and peripheral compressive atelectasis at the bilateral lung bases. No suspicious pulmon hannah nodules, pneumonia, pulmonary edema or pleural effusion. Cardiomegaly. Atherosclerotic coronary a rtery calcific lesion. No pericardial effusion. Thoracic aorta is normal in caliber with no dissectio n. No pathologically enlarged thoracic lymphadenopathy. Postoperative change of prior right mastectom y and right axillary lymph node dissection. Sclerotic lesion at the right side of the T6 vertebral gonzalo dy and small peripherally sclerotic lytic lesion at the anterior left seventh rib, both with increase d uptake on prior bone scan consistent with metastatic disease. ABDOMEN/PELVIS CT: Unchanged region of focal hepatic steatosis at the ligamentum teres. 9 mm hypodense lesion in the cau johnny right hepatic lobe unchanged since the most recent prior study but which is not evident on the st udies from 2021 and 2020 suspicious for metastatic disease. Mild intra and extrahepatic biliary ducta l dilation likely related prior cholecystectomy. Spleen, pancreas, bilateral kidneys and right adrena l gland are normal. Unchanged 9 mm low-attenuation left adrenal adenoma with characteristic low-atten uation on noncontrast CT dated 07/20/2020. Likely prior proximal hemicolectomy with ileocolic anastomos is in the right abdomen. Multiple diverticula along the descending and sigmoid colon without adjacent inflammatory stranding to suggest diverticulitis. No bowel obstruction. Bladder is normal. The uteru s is not identified and has likely been surgically resected. No free intraperitoneal gas or fluid. No pathologically enlarged abdominal or pelvic lymphadenopathy. Unchanged sclerotic lesion at the left posterior iliac spine which is difficult to distinguish from the normal uptake at the posterior back spine on the bone scan but with increased uptake on prior PET study also consistent with metastatic d isease number. IMPRESSION: 1. Unchanged 9 mm hypodense lesion in the right hepatic lobe and sclerotic bone lesions at T6, left s eventh rib and left posterior iliac spine suspicious for stable metastatic disease. No lesions suspic ious for new or progressive metastatic disease. Reviewed, dictated and finalized at location A. IMPRESSION: 1. Unchanged 9 mm hypodense lesion in the right hepatic lobe and sclerotic bone lesions at T6, left seventh rib and left posterior iliac spine suspicious for stable metastatic disease. No lesions suspicious for new or progressive metasta tic disease.
--- NOTE | ~2024-02-05 | NM_ITS ---
EXAMINATION: NM bone scan whole body DATE: 02/05/2024 11:30 INDICATION: Right breast cancer TECHNIQUE: 25.5 mCi Tc-99m HDP was administered intravenously. Delayed whole-body scintigrams were o btained. COMPARISON: 10/01/2023 and PET/CT dated 04/11/2023 FINDINGS: Photopenic defects at the bilateral knees consistent with total knee arthroplasties. Again seen are f oci of increased uptake, slightly less intense than on the prior study at the left femoral diaphysis, anterior left seventh rib, the right side of the T6 vertebral body and subtrochanteric right femur. All but the left femoral lesion were included on prior PET/CT and demonstrated increased FDG uptake c onsistent with metastatic disease. Likely degenerative uptake again seen at the bilateral acromioclav icular joints and at the bilateral ankles. There is additional mild uptake associated with severe fac et osteoarthritis on the right at C3-C4 and associated with severe degenerative disc disease with ant erior endplate osteophytes at C6-C7 which are without abnormally increased FDG uptake on prior PET. N o new bone lesions to suggest progression of metastatic disease. IMPRESSION: 1. Decrease in intensity but no change in number or extent of a few small foci of increased bone upta ke corresponding to FDG avid lesions on prior PET/CT consistent with stability and potentially respon se to treatment of metastatic disease. No new lesions identified. Reviewed, dictated and finalized at location A. IMPRESSION: 1. Decrease in intensity but no change in number or extent of a few small foci of increased bone uptake corresponding to FDG avid lesions on prior PET/CT cons istent with stability and potentially response to treatment of metastatic disea se. No new lesions identified.
== END 2024-02-05 07:24 | disposition home or self-care (01) ==
PROVIDERS: PCP Family Medicine; Visit Provider Internal Medicine Hematology & Oncology
DX: C50.411 Malignant neoplasm of upper-outer quadrant of right female breast (principal); Z17.0 Estrogen receptor positive status [ER+]
CPT/HCPCS: 71260; 74177; 78306; A9503; Q9967

== ENCOUNTER 2024-04-15 15:04 | Outpatient (CLI) | payer MEDICARE, OTHER, SELFPAY ==
[2024-04-15 16:20] LABS: Add Urine Microscopic? YES; Appearance Urine Clear (Clear); Bacteria Urine None Seen /hpf; Bilirubin Urine Negative (Negative); Blood Urine Negative (Negative); Color Urine Yellow (Yellow); Glucose Urine UA Negative (Negative); Ketones Urine Trace mg/dL (Negative); Leukocyte Esterase Ur 2+ LEU/UL (Negative); Nitrate Urine Negative (Negative); Non Pathogenic Casts 0-2; Protein Urine Trace mg/dL (Negative); Specific Grav Ur 1.022 (1.001-1.035); Squamous Epithelial Cell Urine Few /hpf (Few)
== END 2024-04-15 15:05 | disposition home or self-care (01) ==
LOC: ANHLAB 15:18
PROVIDERS: Physician Assistant; PCP Family Medicine; Visit Provider Internal Medicine Hematology & Oncology
DX: N39.0 Urinary tract infection, site not specified (principal)
CPT/HCPCS: 81001; 87086; 87088

== ENCOUNTER 2024-06-06 08:30 | Emergency (ER) | payer MEDICARE, OTHER, SELFPAY ==
[2024-06-06] VITALS (9 sets, daily range): BP systolic 121–160; BP diastolic 50–67; PULSE 59–81; RESP 12–18; TEMP 36.4–36.8; O2SAT 95–99
--- NOTE | ~2024-06-06 | XR_ITS ---
EXAMINATION: XR chest 2V DATE: 06/06/2024 09:16 INDICATION: Syncope TECHNIQUE: frontal and lateral views of the chest were obtained. COMPARISON: Chest radiograph dated 03/05/[address] dated 02/05/2024 FINDINGS: Postoperative change of prior right mastectomy resulting asymmetric increased lucency at the right lo wer lung zone relative to the left. Surgical clips at right axilla consistent with prior axillary lym ph node dissection. No focal airspace opacities, pulmonary edema, pleural effusion or pneumothorax. M ild cardiomegaly. Mild thoracic spondylosis with bridging osteophytes at multiple levels consistent w ith diffuse idiopathic skeletal hyperostosis (DISH). IMPRESSION: 1. No acute cardiopulmonary disease. Reviewed, dictated and finalized at location A. 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
--- NOTE | 2024-06-06 08:38 | ECG_ITS ---
Test Date: 2024-06-06 08:51:28 Measurements Intervals [place] Rate: 63 P: 87 LA: 163 QRS: 7 QRSD: 94 T: 11 QT: 419 QTc: 432 Interpretive Statements SINUS RHYTHM BORDERLINE ST-T WAVE ABNORMALITY- INFERIOR LEADS BASELINE ARTIFACT- I, II, III, AVR, AVL, AVF, V1-V6 BORDERLINE ECG No previous ECG available for comparison Electronically Signed On 06-06-2024 09:47:57 HUMAN RESOURCES DESIGNATE by Jony Love D.O.
[2024-06-06 08:53] LABS: Basophils Absolute Auto 0.1 K/mm3 (0.0-0.1); Basophils Percent Auto 1.6 % (0.2-1.2); Eosinophils Percent Auto 0.9 % (0-4.4); Hematocrit 34.2 % (37.0-47.0); Hemoglobin 11.6 g/dL (12.0-15.0); Immature Granulocyte Absolute 0.03 K/mm3 (0.00-0.031); Immature Granulocyte Percent A 0.7 % (0-0.5); Lymphocytes Absolute Auto 1.61 K/mm3 (0.9-3.2); Lymphocytes Percent Auto 37.4 % (18.3-44.2); Mean Corpuscular HGB Conc 33.9 g/dl (32-36); Mean Corpuscular Hemoglobin 39.3 pg (26-34); Mean Corpuscular Volume 115.9 fl (80-100); Mean Platelet Volume 10.9 fl (7.4-10.4); Monocytes Absolute Auto 0.3 K/mm3 (0.1-0.6); Neutrophils Absolute Auto 2.3 K/mm3 (1.3-6.7); Neutrophils Percent Auto 52.4 % (45.5-73.1); Platelet Count Result 310 k/mm3 (150-375); Red Blood Count 2.95 M/mm3 (4.2-5.4); Red Cell Distribution Width 14.6 % (11.5-14.5); White Blood Count 4.3 K/mm3 (4.5-10.0)
[2024-06-06 09:13] LABS: Atypical Lymphocytes Present; Hypochromasia 1+; Macrocytosis 1+ (NORMAL); Platelet Estimate Adequate (Adequate); Schistocytes None Seen
[2024-06-06 09:22] LABS: Alanine Aminotransferase 11 U/L (6-35); Albumin Level 4.3 g/dL (3.5-5.1); Alkaline Phosphatase 59 U/L (38-126); Anion Gap 6 mmol/L (4-12); Aspartate Amino Transferase 23 U/L (14-36); Bilirubin,Total 1.6 mg/dL (0.2-1.3); Blood Urea Nitrogen 26 mg/dL (7-17); Calcium 9.5 mg/dL (8.4-10.2); Carbon Dioxide 31 mmol/L (22-30); Chloride 99 mmol/L (98-107); Estimated CRCL calculation 43 ml/min; Estimated Glomerular Filt Rate 47; Glucose 139 mg/dL (65-110); Potassium 4.1 mmol/L (3.4-5.0); Sodium 136 mmol/L (137-145)
--- NOTE | 2024-06-06 09:48 | ED.SYNCOPE ---
HPI - Syncope General Chief Complaint: Syncope Stated Complaint: near syncope Time Seen by Provider: 06/06/24 08:31 History of Present Illness HPI narrative: patient is an 83-year-old female who presents ER with concerns for possibly having a syncopal episode. She was sitting on her chair when she got lightheaded and she may have lost consciousness for a couple of seconds. She did not wake up on the floor. She had no injury. She has no chest pain. Unsure if she was having elevated heart rate. She has been eating and drinking normally. She has had a sore throat over last day with mild cough. Denies urinary symptoms. Related Data Home Medications Medication Instructions Recorded Confirmed calcium 500 mg (as 1 tablet PO DAILY 05/05/19 05/18/24 carbonate)-vitamin D3 5 mcg (200 unit) tablet (Calcium 500 + D) Eliquis 5 mg PO BID 06/20/23 05/18/24 Allergies Allergy/AdvReac Type Severity Reaction Status Date / Time atorvastatin Allergy Unknown unknown Verified 05/18/24 13:32 celecoxib Allergy Unknown Unknown Verified 05/18/24 13:32 cephalexin Allergy Unknown Unknown Verified 05/18/24 13:32 codeine Allergy Unknown Unknown Verified 05/18/24 13:32 diclofenac Allergy Unknown Unknown Verified 05/18/24 13:32 ezetimibe Allergy Unknown Unknown Verified 05/18/24 13:32 gabapentin Allergy Unknown Unknown Verified 05/18/24 13:32 hydrocodone Allergy Unknown Unknown Verified 05/18/24 13:32 lovastatin Allergy Unknown Unknown Verified 05/18/24 13:32 ondansetron Allergy Unknown Unknown Verified 05/18/24 13:32 Penicillins Allergy Unknown Unknown Verified 05/18/24 13:32 piroxicam Allergy Unknown WEAK, BLACKMAN Verified 05/18/24 13:32 prednisone Allergy Unknown Unknown Verified 05/18/24 13:32 pregabalin Allergy Unknown Unknown Verified 05/18/24 13:32 ranitidine Allergy Unknown Unknown Verified 05/18/24 13:32 simvastatin Allergy Unknown Unknown Verified 05/18/24 13:32 hydralazine AdvReac Mild Palpitation Verified 05/18/24 13:32 s duloxetine AdvReac Unknown DOESN'T Verified 05/18/24 13:32 FEEL RIGHT duloxetine Allergy Unknown DOESN'T Uncoded 05/18/24 13:32 FEEL RIGHT Penicillins Allergy Unknown Increased Uncoded 05/18/24 13:32 Heart Rate CEPHALEXIN MONOHYDRATE AdvReac Unknown WEAK, BLACKMAN Uncoded 05/18/24 13:32 Review of Systems Review of Systems: All systems reviewed & are unremarkable except as noted in HPI and below Constitutional: Constitutional: Reports no additional constitutional complaints ENT: Reports nasal congestion and Reports sore throat Cardiovascular: Cardiovascular: Reports no additional cardiovascular complaints Respiratory: Respiratory: Denies chest congestion, Reports cough, Denies dyspnea and Denies wheezing Gastrointestinal: Gastrointestinal: Reports no additional gastrointestinal complaints Neurologic: Reports syncope (?), Denies headache(s), Denies focal weakness and Denies numbness PMFSH Past Medical History Medical History Breast cancer, right Frequent UTI Left knee DJD Obesity Osteoarthritis of right knee Small bowel obstruction Spinal stenosis of lumbar region Thrombophlebitis leg superficial Surgical History Surgical History H/O mastectomy Lt Mastectomy H/O thyroidectomy History of bilateral knee replacement S/P total knee arthroplasty Family History Family History Father Cerebrovascular accident Mother Family history of malignant neoplasm of stomach Sibling Family history of lymphoma Family history of coronary artery disease Other Carcinoma of colon Diabetes mellitus Family history of arthritis Family history of cardiovascular disease Family history of malignant neoplasm Social History Social History Smoking status: Never smoker Second hand tobacco smoke exposure: No Alcohol intake: never Substance use: never Substance use type: does not use Living arrangements: with family Occupation/Education: retired Gender identity (if verbalized by the patient): Female Sexual Orientation (if Verbalized by the Patient): Straight or Heterosexual Exam Narrative: GENERAL: Well-appearing, well-nourished, and in no acute distress. HEAD: Normocephalic, atraumatic. ENT: Mucous membranes moist. CHEST: Clear to auscultation. No respiratory distress. HEART: Regular rate and rhythm. Normal peripheral pulses. ABDOMEN: Soft, nontender, nondistended. EXTREMITIES: Normal range of motion. No edema. SKIN: Warm, dry, no rash. NEURO: Alert and oriented x3. PSYCH: Normal mood and affect. Course Course Emergency Course: Orthostatics unremarkable. Labs and imaging unremarkable. Appropriate for discharge home. Vital Signs Vital signs: Vital Signs Temperature 97.6 F 06/06/24 08:35 Pulse Rate 75 06/06/24 08:35 Respiratory Rate 16 06/06/24 08:35 Blood Pressure 160/67 H 06/06/24 08:35 Pulse Oximetry 97 06/06/24 08:35 Oxygen Delivery Room Air 06/06/24 08:35 Temperature 97.6 F 06/06/24 08:35 Pulse Rate 60 06/06/24 10:01 Respiratory Rate 12 06/06/24 10:01 Blood Pressure 134/55 L 06/06/24 10:01 Pulse Oximetry 95 06/06/24 10:01 Oxygen Delivery Room Air 06/06/24 08:35 MDM - Syncope Lab Data 06/06/24 08:46 06/06/24 08:46 Labs: Lab Results 06/06/24 06/06/24 Range/Units 08:46 09:19 WBC 4.3 L (4.5-10.0) K/mm3 RBC 2.95 L (4.2-5.4) M/mm3 Hgb 11.6 L (12.0-15.0) g/dL Hct 34.2 L (37.0-47.0) % MCV 115.9 H (80-100) fl MCH 39.3 H (26-34) pg MCHC 33.9 (32-36) g/dl RDW 14.6 H (11.5-14.5) % Plt Count 310 D (150-375) k/mm3 MPV 10.9 H (7.4-10.4) fl Immature Gran % (Auto) 0.7 H (0-0.5) % Neut % (Auto) 52.4 (45.5-73.1) % Lymph % (Auto) 37.4 (18.3-44.2) % [place] % (Auto) 7.0 (2.6-8.5) % Eos % (Auto) 0.9 (0-4.4) % Baso % (Auto) 1.6 H (0.2-1.2) % Lymph # (Auto) 1.61 (0.9-3.2) K/mm3 [place] # (Auto) 0.3 (0.1-0.6) K/mm3 Eos # (Auto) 0.0 (0-0.3) K/mm3 Baso # (Auto) 0.1 (0.0-0.1) K/mm3 Abs Immat Gran (auto) 0.03 (0.00-0.031) K/mm3 Absolute Neuts (auto) 2.3 (1.3-6.7) K/mm3 Absolute Nucleated RBC 0.000 (0.0-0.012) K/mm3 Nucleated RBC % 0.0 (0.0-0.2) % Atypical Lymphocytes Present Platelet Estimate Adequate (Adequate) Hypochromasia 1+ Macrocytosis 1+ (NORMAL) Schistocytes None seen Sodium 136 L (137-145) mmol/L Potassium 4.1 (3.4-5.0) mmol/L Chloride 99 (98-107) mmol/L Carbon Dioxide 31 H (22-30) mmol/L Anion Gap 6 (4-12) mmol/L BUN 26 H (7-17) mg/dL Creatinine 1.10 H (0.7-1.0) mg/dL Estim Creat Clear Calc 43 ml/min Estimated GFR 47 L (59 - ) Glucose 139 H (65-110) mg/dL Calcium 9.5 (8.4-10.2) mg/dL Total Bilirubin 1.6 H (0.2-1.3) mg/dL AST 23 (14-36) U/L ALT 11 (6-35) U/L Alkaline Phosphatase 59 (38-126) U/L Total Protein 8.0 (6.3-8.2) g/dL Albumin 4.3 (3.5-5.1) g/dL Influenza A (RT-PCR) Negative (Negative) Influenza B (RT-PCR) Negative (Negative) RSV (RT-PCR) Negative (Negative) SARS-CoV-2 RNA (RT-PCR) Negative (Negative) Discharge Plan Discharge Clinical Impression: Acute viral syndrome Patient Disposition: Home, Self-Care Condition: Stable Instructions: Upper Respiratory Infection (ED) Additional Instructions: As discussed you have a viral illness. Unfortunately there are no specific medications we can give you to make the illness end faster. Antibiotics do not work for viral illnesses. However, you can take Acetaminophen or Ibuprofen to help with fevers and pain. Stay well hydrated and rested. Return to the emergency department if your fevers and chills continue to worse after 5 days, if you develop worsening cough with thick sputum, or are unable to stay hydrated. Contact your primary care provider in the next few days for a re-evaluation and to make sure your symptoms are improving. Prescriptions: No Action Eliquis 5 mg 5 mg PO BID calcium carbonate-vitamin D3 [Calcium 500 + D] 500 mg(1,250mg) -200 unit Tablet 1 tablet PO DAILY Ibrance 125 mg capsule 125 mg PO DAILY Qty: 30 0RF Rx Instructions: administer on days 1 through 21 of a 28-day treatment cycle lorazepam [Ativan] 0.5 mg tablet 0.5 mg PO BID PRN (Reason: anxiety) Qty: 30 0RF escitalopram oxalate 10 mg tablet 10 mg PO DAILY Qty: 90 1RF losartan 100 mg tablet 100 mg PO DAILY Qty: 90 1RF levothyroxine 150 mcg capsule 150 mcg PO DAILY Qty: 90 2RF potassium chloride 20 mEq tablet extended release 20 meq PO DAILY Qty: 90 2RF furosemide 40 mg tablet 40 mg PO QAM Qty: 90 1RF tramadol 50 mg tablet 50 mg PO Q12H PRN (Reason: Pain (Scale Score 4-6)) Qty: 60 0RF Follow-up/Referrals: Jake Lake MD [Primary Care Provider] - 1 Week
[2024-06-06 10:58] LABS: Influenza A QL RT-PCR Negative (Negative); Influenza B QL RT-PCR Negative (Negative); RSV RNA, RT-PCR Negative (Negative); SARS-CoV-2 RNA PCR Negative (Negative)
== END 2024-06-06 12:24 | disposition home or self-care (01) ==
PROVIDERS: Emergency Provider Emergency Medicine; PCP Family Medicine
DX: B34.9 Viral infection, unspecified (principal); Z20.822 Contact with and (suspected) exposure to COVID-19; E89.0 Postprocedural hypothyroidism; M17.0 Bilateral primary osteoarthritis of knee; Z96.653 Presence of artificial knee joint, bilateral; Z85.3 Personal history of malignant neoplasm of breast; Z87.440 Personal history of urinary (tract) infections; Z90.12 Acquired absence of left breast and nipple; Z79.01 Long term (current) use of anticoagulants; Z79.899 Other long term (current) drug therapy; R94.31 Abnormal electrocardiogram [ECG] [EKG]
CPT/HCPCS: 36415; 71046; 80053; 85025; 87637; 93005; 99284

== ENCOUNTER 2024-06-15 17:23 | Outpatient (CLI) | payer MEDICARE, OTHER, SELFPAY ==
[2024-06-15 17:59] LABS: Basophils Absolute Auto 0.1 K/mm3 (0.0-0.1); Basophils Percent Auto 1.6 % (0.2-1.2); Eosinophils Percent Auto 0.2 % (0-4.4); Hematocrit 34.1 % (37.0-47.0); Hemoglobin 11.4 g/dL (12.0-15.0); Immature Granulocyte Absolute 0.02 K/mm3 (0.00-0.031); Immature Granulocyte Percent A 0.4 % (0-0.5); Lymphocytes Absolute Auto 2.63 K/mm3 (0.9-3.2); Lymphocytes Percent Auto 46.3 % (18.3-44.2); Mean Corpuscular HGB Conc 33.4 g/dl (32-36); Mean Corpuscular Hemoglobin 38.9 pg (26-34); Mean Corpuscular Volume 116.4 fl (80-100); Mean Platelet Volume 10.4 fl (7.4-10.4); Monocytes Absolute Auto 0.7 K/mm3 (0.1-0.6); Monocytes Percent Auto 12.9 % (2.6-8.5); Neutrophils Absolute Auto 2.2 K/mm3 (1.3-6.7); Neutrophils Percent Auto 38.6 % (45.5-73.1); Platelet Count Result 165 k/mm3 (150-375); Red Blood Count 2.93 M/mm3 (4.2-5.4); Red Cell Distribution Width 14.6 % (11.5-14.5); White Blood Count 5.7 K/mm3 (4.5-10.0)
[2024-06-15 18:27] LABS: Alanine Aminotransferase 12 U/L (6-35); Albumin Level 4.3 g/dL (3.5-5.1); Alkaline Phosphatase 74 U/L (38-126); Anion Gap 4 mmol/L (4-12); Aspartate Amino Transferase 19 U/L (14-36); Bilirubin,Total 1.2 mg/dL (0.2-1.3); Blood Urea Nitrogen 17 mg/dL (7-17); Calcium 9.3 mg/dL (8.4-10.2); Carbon Dioxide 33 mmol/L (22-30); Chloride 102 mmol/L (98-107); Estimated Glomerular Filt Rate 60; Glucose 93 mg/dL (65-110); Potassium 3.6 mmol/L (3.4-5.0); Sodium 139 mmol/L (137-145)
[2024-06-15 18:33] LABS: Add Urine Microscopic? YES; Appearance Urine Clear (Clear); Bacteria Urine None Seen /hpf; Bilirubin Urine Negative (Negative); Blood Urine Negative (Negative); Color Urine Yellow (Yellow); Glucose Urine UA Negative (Negative); Ketones Urine Negative (Negative); Leukocyte Esterase Ur 2+ LEU/UL (Negative); Nitrate Urine Negative (Negative); Non Pathogenic Casts 0-2; Protein Urine Negative (Negative); RBC Urine 0-2 /hpf (0-2); Specific Grav Ur 1.022 (1.001-1.035); Squamous Epithelial Cell Urine Occasional /hpf (Few); Urobilinogen Urine 0.2 mg/dL (<2.0); pH Urine 5.5 (5.0-9.0)
[2024-06-15 18:57] LABS: Platelet Estimate Adequate (Adequate); Schistocytes None Seen
[2024-06-15 18:58] LABS: Anisocytosis 1+; Macrocytosis 1+ (NORMAL)
== END 2024-06-15 17:24 | disposition home or self-care (01) ==
LOC: ANHLAB 17:24
PROVIDERS: PCP Family Medicine; Visit Provider Physician Assistant Medical
DX: C50.919 Malignant neoplasm of unspecified site of unspecified female breast (principal); R30.0 Dysuria; I10 Essential (primary) hypertension; R53.83 Other fatigue; E78.00 Pure hypercholesterolemia, unspecified
CPT/HCPCS: 36415; 80053; 81001; 85025; 87086

== ENCOUNTER 2025-03-18 08:48 | Outpatient (CLI) | payer MEDICARE, OTHER, SELFPAY ==
--- NOTE | ~2025-03-18 | NM_ITS ---
EXAMINATION: NM bone scan whole body DATE: 03/18/2025 13:28 INDICATION: Right breast cancer TECHNIQUE: 25.2 mCi Tc-99m HDP was administered intravenously. Delayed whole- body scintigrams were obtained. 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 Again seen are 3 foci of increased uptake which are less conspicuous than on the initial study of 10/01/2023 located at the subtrochanteric proximal right femur the mid left femoral diaphysis and at the anterior left seventh rib. Correspond to sclerotic focus is seen at the anterior left seventh rib. No abnormal uptake associated with the previous noted sclerotic lesions at the T6 vertebral body and left posterior iliac spine likely representing treated metastatic disease. Mild likely degenerative joint centered uptake at the bilateral acromioclavicular joints, at the bilateral ankles and left hindfoot and at the facet joints at the mid) of the left cervical spine. Small focus of likely dental disease related uptake at the left maxilla. IMPRESSION: 1. 3 foci of abnormal bone uptake with decreasing degree of uptake at the anterior left seventh rib and at the left and right femurs suggest response to treatment of metastatic disease. A couple previously noted sclerotic lesions at T6 and the left posterior iliac spine likely related to prior treated metastatic disease remain without uptake in the current study. There are no new lesions to suggest progression of disease. Reviewed, dictated and finalized at location A. IMPRESSION: 1. 3 foci of abnormal bone uptake with decreasing degree of uptake at the anter ior left seventh rib and at the left and right femurs suggest response to treat ment of metastatic disease. A couple previously noted sclerotic lesions at T6 a nd the left posterior iliac spine likely related to prior treated metastatic di sease remain without uptake in the current study. There are no new lesions to s uggest progression of disease.
--- NOTE | ~2025-03-18 | CT_ITS ---
CHEST ABDOMEN PELVIS WITH CONTRAST CLINICAL HISTORY: Mal Ivan RUQ of breast . COMPARISON: Bone scan 02/05/2024 CT chest abdomen and pelvis 02/05/2024 PET/CT 04/11/2023 TECHNIQUE: Helical CT performed from thoracic inlet to symphysis pubis 100 mL Omnipaque 350 Coronal, sagittal reformats. Multi planar MIPS CT images acquired with automatic exposure control for dose reduction DLP: 1376 mGy-cm FINDINGS: CHEST- Lungs/Pleura: Clear. Minimal scattered scarring. Thoracic Aorta: No dissection. No aneurysm. Pulmonary arteries: Normal caliber. Heart: Mildly enlarged. Tracheobronchial tree: Patent. Nodes: No enlarged nodes. Bones: No acute bony abnormality. T6 sclerotic lesion unchanged. Small sclerotic focus anterior left rib 7. Soft tissues: Right mastectomy. ABDOMEN/PELVIS- Liver: Cirrhosis. Unchanged tiny hypodense focus in segment 5. Gallbladder: Removed. Spleen: Unremarkable. Pancreas: Unremarkable. Adrenal glands: Unchanged small left adenoma. Kidneys: Right kidney- No hydronephrosis. No renal stones. Left kidney- No hydronephrosis. No renal stones. Distal esophagus/stomach: Unremarkable. Small bowel loops: Normal caliber and wall thickness. Colon: Diverticula. Diffuse chronic sigmoid wall thickening likely diverticular disease. Appendix not seen. Nodes: No enlarged nodes. Peritoneum: No ascites. No free air. Urinary bladder: Unremarkable. Uterus: Removed. Adnexa: No masses.. Bones: No acute bony abnormality. Sclerotic lesion left iliac unchanged. Soft tissues: Unremarkable. Aorta: No aneurysm or dissection. Atherosclerotic disease. IVC: Unremarkable. Main portal vein/SMV/splenic vein: Patent. IMPRESSION: CHEST- 1. No acute findings or evidence of active malignancy. 2. Unchanged sclerotic lesion in T6, left anterior rib 7. ABDOMEN/PELVIS- 1. No acute findings or evidence of active malignancy. 2. Unchanged sclerotic lesion left iliac. Reviewed, dictated and finalized at location R.
--- OUTSIDE RECORDS SUMMARY | 2025-03-18 08:55 | XMS_ITS | Clinical Summary ---
Author Organization [facility] Address [address] [place] [address] Care Team Providers Care Outside Installation Machinist Name Role Phone Jake Lake MD Primary Care Provider [phone] Allergies Active Allergy Reactions Criticality Noted Date Comments Celecoxib Nausea and Vomiting Low 10/12/2014 Cephalexin Monohydrate Palpitations Low 10/12/2014 Codeine Muscle Pain Low 10/12/2014 Ezetimibe Muscle Pain Low 10/12/2014 Gabapentin Muscle Pain Medium 10/31/2018 Hydrocodone Constipation Low 10/12/2014 Lovastatin Muscle Pain Low 10/12/2014 Penicillins Palpitations Low 10/12/2014 Piroxicam Unknown 10/12/2014 Prednisone Other (See Comments) 10/12/2014 Pregabalin Nausea and Vomiting Low 10/12/2014 Simvastatin Muscle Pain Low 10/12/2014 Medications traMADol (ULTRAM) 50 mg tablet Take 50 mg by mouth every 8 hours as needed . Active cholecalcifero l, vitamin D3, 1,000 unit Take 1,000 Units by mouth 2 times daily. Active levothyroxine 100 mcg tablet Take 150 mcg by mouth daily in the morning. Active calcium as carbonate (OS-LESLYE) 1,250 mg (500 mg elemental) tablet Take 1 Tablet by mouth daily. Active potassium chloride (KLOR-CON) 20 mEq Extended Release tabletIndicati ons:Malignant neoplasm of upper-outer quadrant of right breast in female, estrogen receptor positive (CMS/HCC) TAKE 1 TABLET(20 MEQ) BY MOUTH DAILY 30 Tablet 3 2 Active losartan (COZAAR) 50 mg tablet Take 100 mg by mouth daily. Active escitalopram oxalate (LEXAPRO) 10 mg tablet Take 10 mg by mouth daily. 3 Active ondansetron (ZOFRAN ODT) 8 mg Tablet, Rapid Dissolve Dissolve 1 tablet on top of tongue then swallow with saliva every 8 hours as needed for nausea or vomiting 30 Tablet 1 3 Active apixaban (Eliquis) 5 mg tabletIndicati ons:Leg edema, left Take 1 Tablet (5 mg) by mouth 2 times daily. 180 Tablet 4 5 Active furosemide (LASIX) 40 mg tablet Take 0.5 Tablets (20 mg) by mouth daily in the morning. 30 Tablet 1 5 Active palbociclib (Ibrance) 125 mg tabletIndicati ons:Malignant neoplasm of upper-outer quadrant of right breast in female, estrogen receptor positive (CMS/HCC) TAKE 1 TABLET BY MOUTH 1 TIME A DAY ON DAYS 1 TO 21 OF A 28 DAY CYCLE 21 Tablet 2 5 Active palbociclib (Ibrance) 125 mg tabletIndicati ons:Malignant neoplasm of upper-outer quadrant of right breast in female, estrogen receptor positive (CMS/HCC) TAKE 1 TABLET BY MOUTH ONCE DAILY FOR 21 DAYS, THEN 7 DAYS OFF. 21 Tablet 2 5 025 Discontinued Active Problems Problem Noted Date Diagnosed Date Bilateral lower extremity edema 12/10/2019 Personal history of DVT (deep vein thrombosis) 0 12/10/2019 Malignant neoplasm of upper- outer quadrant of right breast in female, estrogen receptor positive 03/13/2018 Encounters Date Type Department Care Team Description 03/17/[address] [facility] Oncology and Hematology - [place] [address] [place] [phone] Jc Londono MD 03/08/[address] [facility] On[facility]ematology - [place] [address] [place] [phone] Jc Londono MD Malignant neoplasm of upper-outer quadrant of right breast in female, estrogen receptor positive (CMS/HCC) 03/02/2025 External Device Data [facility] ABSTRACTION Provider, Abstract 02/26/[address] [facility] On[facility] Hematology - [place] [address] [place] [phone] Jc Londono MD Malignant neoplasm of upper-outer quadrant of right breast in female, estrogen receptor positive (CMS/HCC) 02/22/[address] [facility] On[facility] Hematology - [place] [address] [place] [phone] Jc Londono MD Malignant neoplasm of upper-outer quadrant of right breast in female, estrogen receptor positive (CMS/HCC) 02/18/2025 2:45 PM CDT Office Visit [facility] On[facility] Hematology - [place] [address] [place] [id number] Jc Londono MD Malignant neoplasm of upper-outer quadrant of right breast in female, estrogen receptor positive (CMS/HCC) (Primary Dx) 02/16/2025 External Device Data STL ABSTRACTION Provider, Abstract 02/08/[address] [facility]ology - [place] [address] [place] [phone] Jc Londono MD Malignant neoplasm of upper-outer quadrant of right breast in female, estrogen receptor positive (CMS/HCC) 02/05/[address] [facility] On[facility] Hematology - [place] [address] [place] [phone] Jc Londono MD 02/04/[address] [facility]ology - [place] [address] [place] [id number] Jc Londono MD 01/27/2025 External Device Data [facility] ABSTRACTION Provider, Abstract 01/26/2025 External Device Data [facility] ABSTRACTION Provider, Abstract 01/25/[address] [facility]ology - [place] [address] [place] [phone] Jc Londono MD Malignant neoplasm of upper-outer quadrant of right breast in female, estrogen receptor positive (CMS/HCC) 01/11/[address] [facility] On[facility] Hematology - [place] [address] [place] [phone] Jc Londono MD Malignant neoplasm of upper-outer quadrant of right breast in female, estrogen receptor positive (CMS/HCC) 01/08/[address] [facility] On[facility]ematology - [place] [address] [place] [id number] Jc Londono MD 01/05/2025 External Device Data STL ABSTRACTION Provider, Abstract 12/28/[address] [facility] On[facility] and Hematology - [place] [address] [place] [phone] Jc Londono MD Malignant neoplasm of upper-outer quadrant of right breast in female, estrogen receptor positive (CMS/HCC) 12/22/[address] [facility] Oncology and Hematology - [place] [address] [place] [phone] Jc Londono MD Malignant neoplasm of upper-outer quadrant of right breast in female, estrogen receptor positive (CMS/HCC) (Primary Dx) from Last 3 Months Family History Medical History Relation Name Comments Heart Failure Brother 1 Healthy Brother 2 Prostate Cancer Brother 3 Heart Disease Father Stomach Cancer Mother Lymphoma Sister Relation Name Status Comments Brother 1 Brother 2 Alive Brother 3 Alive Father Mother Sister Social History Tobacco Use Types Packs/Day Years Used Date Smoking Tobacco: Never Smokeless Tobacco: Never Tobacco Cessation:Counseling Given: Not Answered Alcohol Use Standard Drinks/Week Comments No 0 (1 standard drink = 0.6 oz pur e alcohol) Comments No Sex and Gender Information Value Date Recorded Sex Assigned at Not on file Legal Sex Female 3:52 PM CDT Gender Identity Not on file Sexual Orientation Not on file Last Filed Vital Signs Vital Sign Reading Time Taken Comments Blood Pressure 129/58 02/18/2025 2:39 PM CDT Pulse 75 02/18/2025 2:39 PM CDT Temperature 36.6 C (97.9 F) 02/18/2025 2:39 PM CDT Respiratory Rate 16 02/18/2025 2:39 PM CDT Oxygen Saturation 91% 02/18/2025 2:39 PM CDT Inhaled Oxygen Concentration - - Weight 107 kg (235 lb 12.8 oz) 02/18/2025 2:39 P M CDT Height 175.3 cm (5' 9) 05/07/2022 1:27 PM CDT Body Mass Index 34.82 05/07/2022 1:27 PM CDT Plan of Treatment Upcoming Encounters Date Type Department Care Team (Late st Contact Info) Description 04/01/2025 4:30 PM CDT Telephone Check Up [facility] On[facility]ology - [place] [address] [facility] [address] [place] [address] Jc Londono MD [address] [place] [address] Health Maintenance Due Date Last Done Comments DTAP/TDAP/TD VACCINES (1 - Tdap) 1959 Traditional Medicare (ACO) A nnual Wellness Visit 1959 PNEUMOCOCCAL VACCINE 50+ YEA RS (1 of 1 - PCV) 1988 ZOSTER VACCINE (1 of 2) 1988 RSV VACCINE (60+ or ) (1 - 1-dose 75+ series) 2013 INFLUENZA VACCINE (#1) 2025 2, 06/24/2020, 05/06/2017, Additional history exists OSTEOPOROSIS SCREENING 05/17/2026 05/17/2021 Procedures Procedure Name Priority Date/Time Associated Diagnosis Comments COMPREHENSIVE METABOLIC PANEL Routine 02/04/2025 3:32 PM CDT CANCER ANTIGEN 15-3 Routine 02/04/2025 1 1:28 AM CDT COMPREHENSIVE METABOLIC PANEL Routine 01/07/2025 8:43 AM CDT from Last 3 Months Results * COMPREHENSIVE METABOLIC PANEL (02/04/2025 3:32 PM CDT) Only the most recent of2 resultswithin the time period is included. Blood us Jc Londono MD CHEMISTRY ORDERABLES Final Resu lt * CANCER ANTIGEN 15-3 (02/04/2025 11:28 AM CDT) Blood Jc Londono MD CHEMISTRY ORDERABLES Final Resu lt from Last 3 Months Insurance MEDICARE PART A AND B [facility] [employer] PPO [id number] MEDICARE PART A AND B [facility] [employer] PPO [id number] RX [facility] Medicare Part D Care Teams Outside Installation Machinist Relationship Specialty Start Date End Date Jake Lake MD [address] [facility] [address] [place] [address] PCP - General Family Practice 04/25/18
--- OUTSIDE RECORDS SUMMARY | 2025-03-18 08:55 | XMS_ITS | Encounter Summary ---
Author Organization [facility] [employer] [facility] Address [address] [place] [address] Care Team Providers Care Food Service Associate Name Role Phone Jake Lake MD Primary Care Provider [phone] Reason for Visit * Reason Comments Med Refill Encounter Details Date Type Department Care Team (Late Contact Info) Description 03/17/2025 Refill [facility] Oncology and Hematology - [place] [address] [place] [address] Jc Londono MD [address] [place] [address] Social History Tobacco Use Types Packs/Day Years Used Date Smoking Tobacco: Never Smokeless Tobacco: Never Alcohol Use Standard Drinks/Week Comments No 0 (1 standard drink = 0.6 oz pur e alcohol) Comments No Sex and Gender Information Value Date Recorded Sex Assigned at Not on file Legal Sex Female 3:52 PM CDT Gender Identity Not on file Sexual Orientation Not on file documented as of this encounter Plan of Treatment Upcoming Encounters Date Type Department Care Team (Late st Contact Info) Description 04/01/2025 4:30 PM CDT Telephone Check Up [facility] Oncology and Hematology - [place] [address] [place] [address] Jc Londono MD [address] [place] [address] documented as of this encounter Visit Diagnoses Not on filedocumented in this encounter Care Teams Food Service Associate Relationship Specialty Start Date End Date Jake Lake MD [address] [facility] [address] [place] [address] PCP - General Family Practice 04/25/18 documented as of this encounter
--- OUTSIDE RECORDS SUMMARY | 2025-03-18 08:55 | XMS_ITS | Encounter Summary ---
Author Organization [facility] Address [address] [place] [address] Care Team Providers Care Bottle Blower Name Role Phone Jake Lake MD Primary Care Provider [phone] Encounter Details Date Type Department Care Team (Late Contact Info) Description 03/13/2018 Chart Note [facility] Radiation Therapy [address] [place] [address] [place] [address] [place] [address] Social History Tobacco Use Types Packs/Day Years [...] 04/01/2025 4:30 PM CDT Telephone Check Up [facility] Oncology and Hematology - [place] [address] [facility] [address] [place] [address] Jc Londono MD [address] [facility] [address] [place] [address] documented as of this encounter Visit Diagnoses Not on filedocumented in this encounter Care Teams Bottle Blower Relationship Specialty Start Date End Date Jake Lake MD [address] [facility] [address] [place] [address] PCP - General Family Practice 04/25/18 documented as of this encounter
--- OUTSIDE RECORDS SUMMARY | 2025-03-18 08:55 | XMS_ITS | Clinical Summary ---
Author Organization [facility] Care Team Providers Care Executive Admin Name Role Phone Jake Lake MD Primary Care Provider Allergies Active Allergy Reactions Criticality Noted Date Comments Celecoxib Stomach upset Low 10/31/2018 Codeine Stomach upset Low 10/31/2018 Diclofenac Muscle pain Medium 10/31/2018 Gabapentin Muscle pain Medium 10/31/2018 Hydrocodone Other (See comments) Low 10/31/2018 Constipation Atorvastatin Muscle pain Medium 10/31/2018 Penicillin G Palpitations Low 10/31/2018 Prednisone Other (See comments) Low 10/31/2018 Sweating Ezetimibe Muscle pain Medium 10/31/2018 Simvastatin Muscle pain Medium 10/31/2018 Social History Tobacco Use Types Packs/Day Years Used Date Smoking Tobacco: Never Assessed Personal Safety Answer Date Recorded Getting School Help Needed Not on file 09/27 Comments Unknown Sex and Gender Information Value Date Recorded Sex Assigned at Not on file Legal Sex 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
--- OUTSIDE RECORDS SUMMARY | 2025-03-18 08:55 | XMS_ITS | Clinical Summary ---
Author Organization [facility] [employer] Address [address] [place] [address] Care Team Providers Care Milk Of Lime Slaker Name Role Phone Jake Lake MD Primary Care Provider [phone] Source Comments [facility] [employer],non-owned Affiliates and Associated Physician Practices is amultiple site organization consisting of ambulatory clinics and hospital sitesin [place], [place], [place] and [place]. This disclosure is being madepursuant to the Care Everywhere program and may not contain all information available regarding this patient. Last updated 18.[facility] [employer] Allergies Active Allergy Reactions Criticality Noted Date Comments Celecoxib Nausea and/or Vomiting 01/22/2022 Codeine Other 01/22/2022 Stomach pain Duloxetine Nausea and/or Vomiting 01/22/2022 Piroxicam Nausea and/or Vomiting 01/22/2022 Cephalexin Nausea and/or Vomiting 01/22/2022 Pregabalin Nausea and/or Vomiting 01/22/2022 Penicillins Palpitations 01/22/2022 fast heartbeat Medications * Be aware that medications may not be up to date on this document. Alwaysverify current medications with the patient. Calcium Carbonate Antacid (CALCIUM CARBONATE PO) Take by mouth once daily D3 Active citalopram (CELEXA) 20 MG tablet Take 20 mg by mouth once daily Active furosemide (LASIX) 40 MG tablet Take 40 mg by mouth once daily every morning Active levothyroxine (SYNTHROID) 150 MCG tablet Take 150 mcg by mouth daily before breakfast Active losartan (COZAAR) 50 MG tablet Take 50 mg by mouth once daily Active POTASSIUM CHLORIDE PO Take 20 mcg by mouth once daily Active rivaroxaban (XARELTO) 10 MG tablet Take by mouth daily with dinner Active tamoxifen (NOLVADEX) 20 MG tablet Take 20 mg by mouth once daily Active traMADol (ULTRAM) 50 MG tablet Take 50 mg by mouth every 12 hours as needed Active Active Problems Problem Noted Date Diagnosed Date Bilateral lower extremity edema 12/10/2019 Personal history of DVT (deep vein thrombosis) 0 12/10/2019 Malignant neoplasm of upper- outer quadrant of right breast in female, estrogen receptor positive 03/13/2018 Family History Medical History Relation Name Comments Cancer - Pancreatic Daughter CAD (Coronary Artery Disease) Father CVA Father Diabetes - Type 2 Father High Cholesterol Father Osteoporosis Father Hypertension Mother Cancer - Colon Son 1 Relation Name Status Comments Daughter Father Maternal Grandfather Maternal Grandmother Mother Paternal Grandfather Paternal Grandmother Son 1 Son 2 Alive Social History Tobacco Use Types Packs/Day Years Used Date Smoking Tobacco: Never Smokeless Tobacco: Never Alcohol Use Standard Drinks/Week Comments Not Currently 0 (1 standard drink = 0.6 oz pur e alcohol) Comments No Sex and Gender Information Value Date Recorded Sex Assigned at Not on file Legal Sex Female 11:19 AM CDT Gender Identity Not on file Sexual Orientation Not on file Last Filed Vital Signs Vital Sign Reading Time Taken Comments Blood Pressure 148/84 01/22/2022 12:53 PM CDT Pulse - - Temperature - - Respiratory Rate - - Oxygen Saturation - - Inhaled Oxygen Concentration - - Weight 111.4 kg (245 lb 9.6 oz) 022 12:53 PM CDT Height 175.3 cm (5' 9) 01/22/2022 12:5 3 PM CDT Body Mass Index 36.27 01/22/2022 12:53 PM CDT Plan of Treatment Health Maintenance Due Date Last Done Comments BONE DENSITY TESTING 1940 DTAP/TDAP/TD VACCINES (1 - Tdap) 1957 PNEUMOCOCCAL VACCINE 50+ (1 of 1 - PCV) 1988 ZOSTER VACCINE (1 of 2) 1988 Respiratory Syncytial Virus (RSV) Vaccine Pt: or over 60 yrs (1 - 1-dose 75+ series) 2013 COVID-19 VACCINE ( - 2023-2 5 season) 2024 DEPRESSION SCREENING 07/15/2024 INFLUENZA VACCINE (#1) 2025 HEPATITIS B VACCINE Aged Out No longe r eligible based on patient's age to complete this topic HIB VACCINE Aged Out No longer eligi ble based on patient's age to complete this topic HPV VACCINE Aged Out No longer eligi ble based on patient's age to complete this topic MENINGOCOCCAL (Group B) VACC INE SHARED DECISION-MAKING Aged Out No longer eligibl e based on patient's age to complete this topic MENINGOCOCCAL GROUPS A/C/Y/W VACCINE Aged Out No longer eligible b ased on patient's age to complete this topic Insurance MEDICARE [facility] Care Teams Milk Of Lime Slaker Relationship Specialty Start Date End Date Jake Lake MD [address] [place] [address] PCP - General 01/07/18
[2025-03-18 09:14] LABS: Estimated Glomerular Filt Rate 43
== END 2025-03-18 08:49 | disposition home or self-care (01) ==
PROVIDERS: PCP Family Medicine; Visit Provider Internal Medicine Hematology & Oncology
DX: C50.411 Malignant neoplasm of upper-outer quadrant of right female breast (principal); Z17.0 Estrogen receptor positive status [ER+]
CPT/HCPCS: 71260; 74177; 78306; A9503; Q9967